=== PATIENT | male | born 1935 | race Caucasian/White ===

== ENCOUNTER 2016-11-09 02:02 | Inpatient (IN) | payer OTHER ==
[2016-11-09] MEDS ORDERED: IPRATROPIUM/ALBUTEROL 3 ML DEYVIAL IH ONE (02:09)
--- NOTE | 2016-11-09 02:14 | EDPHY ---
H & P HPI/ROS: HPI CHIEF COMPLAINT: Shortness of breath HISTORY OF PRESENT ILLNESS: this patient very pleasant 81-year-old male, significant past medical history for heart failure, COPD, on 3 L nasal cannula of oxygen at night and wears CPAP at night, he presents emergency room at 2 o' clock in the morning by EMS after the make contact with him after he called 911 for tremors and shortness of breath. Upon arrival he was on his CPAP and noted to be having an oxygen saturation 90%. He was taken off CPAP and had audible respiratory noises sounding like wet secretions and appear to be in respiratory distress with tachypnea. He is brought to the emergency room by EMS he was placed on nasal cannula 3 L 90% oxygen saturation however tachypneic in the 30s , and tremulous. He denies chest pain. Denies fever. Denies productive cough. States that his shortness of breath started around 630 this evening progressed throughout the evening. Denies recent illness. Was given a DuoNeb breathing treatment EN route by EMS this did not improve his symptoms. Upon arrival here to the emergency room he appears to be in mild distress he is tachypneic in the 30s has audible wet secretions throughout lung campos and upper airway. His room air saturation was 88% his oxygen saturation on 3 L currently is 94%. It is noted that his who is at bedside has had an upper respiratory tract infection this week. Past Medical History: Chronic cholecystitis, AFib on Coumadin, hypertension, COPD 3 L nasal cannula, CHF Past Surgical History: Left chest pacemaker Social History: Denies daily use of drugs alcohol tobacco products Family History: noncontributory ROS REVIEW OF SYSTEMS: A comprehensive 10 point review of systems is otherwise negative aside from elements mentioned in the history of present illness. Exam Constitutional triage nursing summary reviewed, vital signs reviewed, awake/ alert. Eyes normal conjunctivae and sclera, EOMI, PERRLA. HENT normal inspection, atraumatic, moist mucus membranes, no epistaxis, neck supple/ no meningismus, no raccoon eyes. Respiratory mild respiratory distress, tachypnea, diffuse crackles throughout lung campos, upper airway crackles Cardiovascular rate normal, regular rhythm, no murmur, no edema, distal pulses normal. Gastrointestinal soft, non-tender, no rebound, no guarding, normal bowel sounds, no distension, no pulsatile mass. Genitourinary no CVA tenderness. Musculoskeletal no midline vertebral tenderness, full range of motion, no calf swelling, no tenderness of extremities, no meningismus, good pulses, neurovascularly intact. Skin pink, warm, & dry, no rash, skin atraumatic. Neurologic awake, alert and oriented x 3, AAOx3, moves all 4 extremities equally, motor intact, sensory intact, CN II-XII intact, normal cerebellar, normal vision, normal speech. Psychiatric normal mood/affect. Heme/Lymph/Immune no lymphadenopathy. Differential Diagnosis:Includes but is not limited to in a particular order COPD exacerbation, heart failure, pneumonia, pulmonary embolism, respiratory distress, electrolyte disturbance, ACS, bronchitis, acute hypoxic respiratory failure, hypercarbic respiratory failure Medical Decision Making: plan for this patient patient be placed on full gravity prospecting observer he placed on supplemental oxygen he will be placed on full face BiPAP to help with his respiratory distress, patient will have an IV established be placed on full gravity prospecting observer, DuoNeb breathing treatment, blood cultures, lactic acid, chest x-ray and re-evaluation close monitoring. Re-evaluation: EKG interpretation by me on record in [employer] system. Impression time of EKG 2:36 a.m., this is a paced rhythm underlying AFib, paced at 70, unremarkable otherwise EKG. Critical Care: Total Critical Care Time Spent Managing this Patient: 65 Minutes. This time was spent Exclusively with this patient. This Care was exclusive of procedures. The Organ System/life at risk was respiratory distress severe hypoxia This Patient was in Critical Condition because hypoxia, respiratory distress CT scan of the angiogram chest The results of the study are pulmonary edema versus infiltration The study was read by Dr. Helms I viewed the images myself on the PACS system. [id number]: At this time I spoke with Dr. Ma of agrees to admit this patient. CT scan has been reviewed shows no pulmonary embolism however does show pulmonary edema versus pneumonia. Patient has had blood cultures, IV Rocephin, IV azithromycin, 40 mg IV Lasix. Patient is on full face BiPAP with hypoxia but doing well. Patient be admitted to the hospitalist service PCU. Source: Patient, EMS - Personal History Tetanus Vaccine Date: 2010 Constitutional: Initial Vital Signs Temperature (C) 37.9 C 11/09/16 02:13 Heart Rate 72 11/09/16 02:13 Respiratory Rate 19 11/09/16 02:13 Blood Pressure 189/86 H 11/09/16 02:13 O2 Sat (%) 90 L 11/09/16 02:13 O2 Delivery Mode Room Air O2 (L/minute) 2 Allergies/Adverse Reactions: codeine [Codeine] Allergy (Verified 06/04/12 17:19) Home Medications: Medication Instructions Recorded Ascorbic Acid [Vitamin C 500 mg 500 mg PO BID 07/07/12 (OTC)] Doxazosin Mesylate [Cardura 4 MG 4 mg PO HS 07/07/12 (RX)] Glucosam/Chondr/Collagn/Hyalur 1 each PO DAILY 07/07/12 [Glucosamine & Chondroitin Cap] Hydrochlorothiazide 25 mg PO DAILY 07/07/12 [Hydrochlorothiazide 25 MG (RX)] Loratadine [Claritin 10 mg] 10 mg PO HS 07/07/12 Metoprolol Tartrate [Lopressor 50 50 mg PO DAILY 07/07/12 mg (RX)] Primidone [Mysoline 50mg (RX)] 125 mg PO HS 07/07/12 Tiotropium Inhaler [Spiriva 1 inh IH DAILY 07/07/12 Inhaler (RX)] Valsartan [Diovan 80MG (RX)] 80 mg PO DAILY 07/07/12 Aspirin [Aspirin 81mg (*)] 81 mg PO DAILY 11/09/16 Fluticasone/Salmeterol [Advair Hfa 2 puffs IH DAILY 11/09/16 115-21 Mcg Inhaler] Furosemide [Lasix 20 MG (*)] 20 mg PO DAILY 11/09/16 Herbals/Supplements -Info Only 1 ea PO DAILY 11/09/16 SIMVASTATIN 10 mg PO HS 11/09/16 Warfarin Sodium [Coumadin 2.5MG 3.75 mg PO HS 11/09/16 (*)] Medical Decision Making - Data Points Laboratory Results: Laboratory Results 11/09/16 02:00 11/09/16 02:00 Medications Given: Discontinued Medications Albuterol/Ipratropium (Duoneb) 3 ml IH EDNOW ONE Stop: 11/09/16 02:10 Last Admin: 11/09/16 03:07 Dose: 3 ml Furosemide (Lasix Injection) 40 mg IVP EDNOW ONE Stop: 11/09/16 02:24 Last Admin: 11/09/16 02:54 Dose: 40 mg Azithromycin 500 mg/ Dextrose 255 mls @ 255 mls/hr IV EDNOW ONE PRN Reason: Protocol Stop: 11/09/16 03:22 Last Admin: 11/09/16 03:55 Dose: 255 mls Ceftriaxone Sodium/Dextrose (Rocephin 1 Gm (Premix)) 50 mls @ 100 mls/hr IV EDNOW ONE PRN Reason: Protocol Stop: 11/09/16 02:52 Last Admin: 11/09/16 03:06 Dose: 50 mls Sodium Chloride (Ns) 500 mls @ 0 mls/hr IV ONCE ONE PRN Reason: Wide Open Stop: 11/09/16 04:20 Last Admin: 11/09/16 04:24 Dose: 500 mls Departure - Departure Disposition: [facility] Inpatient Acute Clinical Impression: Hypoxia CHF (congestive heart failure) Qualifiers: Congestive heart failure type: systolic Congestive heart failure chronicity: acute Qualified Code(s): I50.21 - Acute systolic (congestive) heart failure Pneumonia Qualifiers: Pneumonia type: due to unspecified organism Laterality: right Lung location: lower lobe of lung Qualified Code(s): J18.1 - Lobar pneumonia, unspecified organism Condition: Fair
[2016-11-09 02:18] LABS: % IMMATURE GRANULYOCYTES 0.2 % (0.0-1.1); ABSOLUTE IMMATURE GRANULOCYTES 0.02 10^3/uL (0.00-0.10); ADD DIFF? NO; ADD MORPH? NO; ADD SCAN? NO; ATYPICAL LYMPHOCYTE FLAG 10 (0-99); FRAGMENT RBC FLAG 0 (0-99); HEMATOCRIT 43.5 % (40.0-51.0); HEMOGLOBIN 14.6 g/dL (13.7-17.5); LEFT SHIFT FLG 0 (0-99); LIPEMIA HEMOLYSIS FLAG 80 (0-99); MEAN CELL HEMOGLOBIN 32.4 pg (27.9-34.1); MEAN CELL HEMOGLOBIN CONCENTR. 33.6 g/dL (32.4-36.7); MEAN CELL VOLUME 96.5 fL (81.5-99.8); MEAN PLATELET VOLUME 11.6 fL (8.7-11.7); PLATELET CLUMPS FLAG 0 (0-99); PLATELET COUNT 123 10^3/uL (150-400); RED BLOOD CELL COUNT 4.51 10^6/uL (4.40-6.38); RED CELL DISTRIBUTION WIDTH 14.5 % (11.5-15.2)
[2016-11-09] MEDS ORDERED: AZITHROMYCIN IV 500 MG in D5W 250 ML IV ONE (02:23)
[2016-11-09] MEDS ORDERED: FUROSEMIDE 40 MG/4 ML VIAL IVP ONE (02:23)
[2016-11-09 02:28] LABS: APTT 31.4 SEC (23.0-38.0); INR 3.28 (0.83-1.16); PROTIME(PATIENT) 33.9 SEC (12.0-15.0)
[2016-11-09 02:30] LABS: ALANINE AMINOTRANSFERASE 40 IU/L (21-72); ALBUMIN 4.4 g/dL (3.5-5.0); ALKALINE PHOSPHATASE 142 IU/L (38-126); ANION GAP 13 mEq/L (8-16); ASPARTATE AMINOTRANSFERASE 38 IU/L (17-59); BILIRUBIN-CONJUGATED 0.5 mg/dL (0.0-0.5); BILIRUBIN-UNCONJUGATED 0.5 mg/dL (0.0-1.1); CALCIUM 9.1 mg/dL (8.5-10.4); CARBON DIOXIDE 27 mEq/l (22-31); CHLORIDE 96 mEq/L (97-110); CREATININE 0.9 mg/dL (0.7-1.3); GLOMERULAR FILTRATION RATE > 60; GLUCOSE 145 mg/dL (70-100); MAGNESIUM 1.9 mg/dL (1.6-2.3); SODIUM 136 mEq/L (134-144); TOTAL PROTEIN 7.8 g/dL (6.3-8.2)
[2016-11-09] MEDS ORDERED: IOPAMIDOL (ISOVUE 370) 100 ML BTL IV ONE (02:36)
--- NOTE | 2016-11-09 02:38 | CPEKG ---
Heart Rate: 70 RR Interval: 857 QRSD Interval: 166 QT Interval: 468 QTC Interval: 506 QRS [place]: -80 T Wave [place]: 75 EKG Severity - ABNORMAL ECG - EKG Impression: VENTRICULAR-PACED RHYTHM EKG Impression: Ventricular pacing is new since July 09, 2012 Electronically Signed By: Jose Ramon Anna 12-Nov-2016 12:21:12
[2016-11-09 02:42] LABS: CREATINE KINASE-MB FRACTION 2.44 ng/mL (0-3.19); TROPONIN I < 0.012 ng/mL (0-0.034)
[2016-11-09 02:53] LABS: BASE EXCESS 2.5 mEq/L (-2.5-2.5); BICARBONATE 28 mEq/L (22-26); MEASURED OXYGEN SATURATION 51 % (92-95); PCO2 46 mmHg (34-38); TCO2 29 mEq/L (23-27)
[2016-11-09 02:54] LABS: BIPAP YES; EXP PRESSURE 6; INSP PRESSURE 12; O2 CONCENTRATIION 40 % (0-100); P/F RATIO 75 RATIO
[2016-11-09 02:55] LABS: PO2 30 mmHg (65-75)
[2016-11-09] MEDS ORDERED: NS 500 ML IV ONE (04:19)
[2016-11-09] MEDS ORDERED: ACETAMINOPHEN 325 MG TAB PO PRN (04:59)
[2016-11-09] MEDS ORDERED: ONDANSETRON 4 MG/2 ML VIAL IVP PRN (04:59)
[2016-11-09] MEDS ORDERED: oxyCODONE IR 5 MG TAB PO PRN (04:59)
[2016-11-09] MEDS ORDERED: ALBUTEROL 3 ML DEYVIAL IH PRN (04:59)
[2016-11-09] MEDS ORDERED: ONDANSETRON DISINTEGRATING 4 MG TAB PO PRN (04:59)
[2016-11-09 06:29] LABS: BASE EXCESS 1.8 mEq/L (-2.5-2.5); BICARBONATE 25 mEq/L (22-26); MEASURED OXYGEN SATURATION 98 % (92-95); PCO2 34 mmHg (34-38); PO2 103 mmHg (65-75); TCO2 26 mEq/L (23-27)
[2016-11-09] MEDS: IPRATROPIUM/ALBUTEROL 3 ML DEYVIAL IH SCH ×4 (06:40→20:26)
--- NOTE | 2016-11-09 07:00 | PDGENHP ---
History and Physical - Chief Complaint Shortness of breath - History of Present Illness Patient is an 81-year-old male with a history of valvular heart disease, AFib S/ P ppm, chronic respiratory failure on 3 L NC vs CPAP at night who presents to the ED with acute respiratory distress. Patient states his symptoms started at around 7:00 p.m., prior to this he was in his usual state of health, completed his usually daily tasks without event. Initially symptoms started with a mild dry cough that became productive of sputum. His symptoms progressed throughout the evening and he was awoken at around 2 am with shaking chills and moderate respiratory distress, for which EMS was called. On EMS' arrival, patient was wearing his home CPAP and had wet sounding cough. Respiratory distress was not improved with nebs and he was transported to the ED for further management. On arrival to the ED, patient was afebrile, and hemodynamically stable, but tachypneic and hypoxic to mid-80s. He was placed on BIPAP with moderate improvement in symptoms. Labs revealed mild leukocytosis, elevated BUN and presenting ABG showed hypoxemia. CXR revealed bilateral lower patchy infiltrates. EKG showed V-paced rhythm with underlying Afib, rate controlled. CT chest was then obtained, was negative for pulmonary embolism, but did show evidence of pneumonia. He was cultured and initiated on antibiotics and admitted to the hospitalist service for further management. History Information - Allergies/Home Medication List Allergies/Adverse Reactions: codeine [Codeine] Allergy (Verified 06/04/12 17:19) Home Medications: Ascorbic Acid [Vitamin C 500 mg (OTC)] 500 mg PO DAILY 07/07/12 [Last Taken 06/08] Aspirin [Aspirin 325 mg (OTC)] 162.5 mg PO DAILY 07/07/12 [Last Taken 07/07/12] Doxazosin Mesylate [Cardura 4 MG (RX)] 4 mg PO DAILY 07/07/12 [Last Taken ] Glucosam/Chondr/Collagn/Hyalur [Glucosamine & Chondroitin Cap] 2 each PO DAILY 07/07/12 [Last Taken 07/07/12] Hydrochlorothiazide [Hydrochlorothiazide 25 MG (RX)] 25 mg PO DAILY 07/07/12 [ Last Taken 07/07/12] Loratadine [Claritin 10 mg] 10 mg PO HS 07/07/12 [Last Taken 07/06/12] Metoprolol Tartrate [Lopressor 50 mg (RX)] 75 mg PO BID 07/07/12 [Last Taken 06/08 08:00] Primidone [Mysoline 50mg (RX)] 100 mg PO HS 07/07/12 [Last Taken 07/06/12] Tiotropium Inhaler [Spiriva Inhaler (RX)] 1 inh IH DAILY 07/07/12 [Last Taken ] Valsartan [Diovan 80MG (RX)] 80 mg PO DAILY 07/07/12 [Last Taken 07/07/12] Advair Hfa 115-21 Mcg Inhaler 11/09/16 [Last Taken Unknown] Coumadin 11/09/16 [Last Taken Unknown] Flaxseed Oil 11/09/16 [Last Taken Unknown] Furosemide 11/09/16 [Last Taken Unknown] Jantoven 11/09/16 [Last Taken Unknown] I have personally reviewed and updated: family history, medical history, social history, surgical history - Past Medical History Additional medical history: h/o rheumatic mitral valve disease, s/p repair. afib s/p ablation and PPM. chronic respiratory failure, on night O2. Essential tremor of L hand. Hypertension - Surgical History Additional surgical history: mitral valve repair. cholecystectomy. 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 Lives with , is independent in ADLs. Review of Systems ROS: 10pt was reviewed & negative except for what was stated in HPI & below Physical Exam Temp Pulse Resp BP Pulse Ox 36.9 C 72 22 H 115/75 96 11/09/16 06:10 11/09/16 06:10 11/09/16 06:10 11/09/16 06:10 11/09/16 06:10 O2 (L/minute) 2 Constitutional: no apparent distress, appears nourished, not in pain Eyes: PERRL, anicteric sclera, EOMI Ears, Nose, Mouth, Throat: hearing normal, ears appear normal, no oral mucosal ulcers, dry mucous membranes Cardiovascular: systolic murmur, irregularly irregular, pulses symmetric bilaterally, edema (trace pedal edema b/l), No JVD Peripheral Pulses: 2+: dorsalis-pedis (R), dorsalis-pedis (L) Respiratory: no respiratory distress, inspiratory crackles Gastrointestinal: normoactive bowel sounds, soft, non-tender abdomen, no palpable masses, No tenderness, No guarding, No rebound Genitourinary: no bladder fullness, no bladder tenderness Skin: warm, normal color, no rashes or abrasions, no fluctuance, other (chronic stasis changes in lower extremities), No mottled Musculoskeletal: full muscle strength, no muscle tenderness, normal joint ROM, no joint effusions Neurologic: AAOx3, sensation intact bilaterally, CN II-XII Intact, No weakness, No numbness, No facial droop Psychiatric: interacting appropriately, not anxious, not encephalopathic, thought process linear, other (but lethargic) Lab Data & Imaging Review 11/09/16 02:00 11/09/16 02:00 WBC 10.77 10^3/uL (3.80-9.50) H 11/09/16 02:00 RBC 4.51 10^6/uL (4.40-6.38) 11/09/16 02:00 Hgb 14.6 g/dL (13.7-17.5) 11/09/16 02:00 Hct 43.5 % (40.0-51.0) 11/09/16 02:00 MCV 96.5 fL (81.5-99.8) 11/09/16 02:00 MCH 32.4 pg (27.9-34.1) 11/09/16 02:00 MCHC 33.6 g/dL (32.4-36.7) 11/09/16 02:00 RDW 14.5 % (11.5-15.2) 11/09/16 02:00 Plt Count 123 10^3/uL (150-400) L 11/09/16 02:00 MPV 11.6 fL (8.7-11.7) 11/09/16 02:00 Neut % (Auto) 81.8 % (39.3-74.2) H 11/09/16 02:00 Lymph % (Auto) 10.8 % (15.0-45.0) L 11/09/16 02:00 [place] % (Auto) 5.6 % (4.5-13.0) 11/09/16 02:00 Eos % (Auto) 1.0 % (0.6-7.6) 11/09/16 02:00 Baso % (Auto) 0.6 % (0.3-1.7) 11/09/16 02:00 Nucleat RBC Rel Count 0.0 % (0.0-0.2) 11/09/16 02:00 Absolute Neuts (auto) 8.82 10^3/uL (1.70-6.50) H 11/09/16 02:00 Absolute Lymphs (auto) 1.16 10^3/uL (1.00-3.00) 11/09/16 02:00 Absolute Monos (auto) 0.60 10^3/uL (0.30-0.80) 11/09/16 02:00 Absolute Eos (auto) 0.11 10^3/uL (0.03-0.40) 11/09/16 02:00 Absolute Basos (auto) 0.06 10^3/uL (0.02-0.10) 11/09/16 02:00 Absolute Nucleated RBC 0.00 10^3/uL (0-0.01) 11/09/16 02:00 Immature Gran % 0.2 % (0.0-1.1) 11/09/16 02:00 Immature Gran # 0.02 10^3/uL (0.00-0.10) 11/09/16 02:00 PT 33.9 SEC (12.0-15.0) H 11/09/16 02:00 INR 3.28 (0.83-1.16) H 11/09/16 02:00 APTT 31.4 SEC (23.0-38.0) 11/09/16 02:00 Puncture Site LEFT RADIAL 11/09/16 06:20 Patient Temperature 37.0 DEGREES 11/09/16 06:20 pCO2 34 mmHg (34-38) 11/09/16 06:20 pO2 103 mmHg (65-75) H 11/09/16 06:20 Total CO2 26 mEq/L (23-27) 11/09/16 06:20 ABG pH 7.47 (7.35-7.45) H 11/09/16 06:20 ABG PO2/FiO2 Ratio 75 RATIO 11/09/16 02:40 ABG O2 Saturation 98 % (92-95) H D 11/09/16 06:20 ABG Base Excess 1.8 mEq/L (-2.5-2.5) 11/09/16 06:20 VBG Lactic Acid 1.8 mmol/L (0.7-2.1) 11/09/16 02:51 Total O2 Concentration 3.0 LITERS 11/09/16 06:20 O2 Concentration % 40 % (0-100) 11/09/16 02:40 Expiratory Pressure 6 11/09/16 02:40 Inspiratory Pressure 12 11/09/16 02:40 Mode BiPAP YES 11/09/16 02:40 Sodium 136 mEq/L (134-144) 11/09/16 02:00 Potassium 5.0 mEq/L (3.5-5.2) 11/09/16 02:00 Chloride 96 mEq/L (97-110) L 11/09/16 02:00 Carbon Dioxide 27 mEq/l (22-31) 11/09/16 02:00 Bicarbonate 25 mEq/L (22-26) 11/09/16 06:20 Anion Gap 13 mEq/L (8-16) 11/09/16 02:00 BUN 27 mg/dL (7-23) H 11/09/16 02:00 Creatinine 0.9 mg/dL (0.7-1.3) 11/09/16 02:00 Estimated GFR > 60 11/09/16 02:00 Glucose 145 mg/dL (70-100) H 11/09/16 02:00 Calcium 9.1 mg/dL (8.5-10.4) 11/09/16 02:00 Magnesium 1.9 mg/dL (1.6-2.3) 11/09/16 02:00 Total Bilirubin 1.0 mg/dL (0.1-1.4) 11/09/16 02:00 Conjugated Bilirubin 0.5 mg/dL (0.0-0.5) 11/09/16 02:00 Unconjugated Bilirubin 0.5 mg/dL (0.0-1.1) 11/09/16 02:00 AST 38 IU/L (17-59) 11/09/16 02:00 ALT 40 IU/L (21-72) 11/09/16 02:00 Alkaline Phosphatase 142 IU/L (38-126) H 11/09/16 02:00 Creatine Kinase 78 IU/L (0-224) 11/09/16 02:00 CK-MB (CK-2) Fraction 2.44 ng/mL (0-3.19) 11/09/16 02:00 Troponin I < 0.012 ng/mL (0-0.034) 11/09/16 02:00 NT-Pro-B Natriuret Pep 1210 pg/mL (0-450) H 11/09/16 02:00 Total Protein 7.8 g/dL (6.3-8.2) 11/09/16 02:00 Albumin 4.4 g/dL (3.5-5.0) 11/09/16 02:00 Lipase 40.0 IU/L (23-300) 11/09/16 02:00 Visualized and Interpreted Chest x-ray results: Yes Chest X-Ray results: infiltrate (bilaterally, R>L) Visualized and Interpreted imaging results: Yes Interpretation: CT chest: no pulm embolism; bilateral infiltrates Visualized and Interpreted EKG results: Yes EKG additional interpertation: v-paced afib Assessment & Plan Assessment: Patient is an 81/M with valvular heart disease, Afib s/p PPm, HTN, chronic resp failure who presents to ED with acute onset dyspnea, cough and chills. ED work up reveals acute respiratory failure due to community acquired pneumonia. Plan: # acute on chronic hypoxic respiratory failure Patient in moderate resp distress on arrival, stabilized with BIPAP support. Work up reveals bilateral patchy infiltrates consistent with community acquired pneumonia. CT has ruled out pulmonary embolism and significant pulmonary edema/ effusion. Repeat ABG on bipap shows significant improvement in hypoxemia. Will treat pneumonia and cont bipap/supplemental O2 as needed. # acute community acquired pneumonia Patient does meet sirs criteria with small leukocytosis and tachypnea on presentation, and sepsis criteria with pulmonary source. Lactic acid normal. He was cultured and started on IV antibiotics to cover for presumed community acquired pneumonia. Flu swab and UA are pending. Will cont ceftriaxone and azithromycin, supportive therapy with tylenol, cough suppressants prn and check sputum culture. # Afib EKG reveals paced rhythm without obvious ischemia. INR slightly supratherapeutic , will hold Coumadin and restart rest of home meds. # valvular heart disease Patient with rheumatic mitral regurgitation, s/p MV repair. On presentation today, patient with slight pedal edema and small pulmonary edema and BNP is slightly elevated. Will hold aggressive diuresis in setting of acute infection/ sepsis. Will also confirm and cont home meds. # disp: admit to inpatient service for likely > 2 mN stay # gen; Cardiac diet DVT ppx: on coumadin Full code
[2016-11-09 09:28] LABS: COLOR YELLOW; LEUKOCYTE ESTERASE,URINE NEGATIVE (NEGATIVE); NITRITE,URINE NEGATIVE (NEGATIVE)
--- NOTE | 2016-11-09 16:41 | HOSPPROG ---
Hospitalist Progress Note Assessment/Plan: DIAGNOSES: -multilobar community-acquired pneumonia -acute respiratory failure with hypoxemia -COPD chronic and mild COPD exacerbation from above -history of valvular heart disease with repair of rheumatic mitral valve, on anticoagulation in range -history of AFib status post ablation currently in sinus PLANS: -continue empiric antibiotics and follow cultures Continue bronchodilators Consider addition of steroids as necessary Continue anticoagulation and follow INR closely here and for duration of antibiotics Ambulation as able SUBJECTIVE: feels slightly better than yesterday with less shortness of breath, no chest pain or chills today OBJECTIVE Vitals reviewed: Stable without fever [employer], my review: Sinus rhythm Exam: alert oriented skin warm dry color ok resps not labored lungs diminished breath sounds overall with some right greater than left rales in the lower half side, no wheeze heart regular abd soft nondistended nontender, bowel sounds present limbs warm, no edema iv site ok Culture data: Cultures of blood are negative to date Laboratory data: No concerning changes in blood tests so far today Objective: Vital Signs Temp Pulse Resp BP Pulse Ox 36.6 C 77 18 118/63 97 11/09/16 14:45 11/09/16 14:50 11/09/16 14:50 11/09/16 14:45 11/09/16 14:50 11/08/16 11/09/16 11/10/16 06:59 06:59 06:59 Intake Total 800 Output Total 950 750 Balance -150 -750 PT 33.9 SEC (12.0-15.0) H 11/09/16 02:00 INR 3.28 (0.83-1.16) H 11/09/16 02:00 ICD10 Worksheet Patient Problems: Problems Problem Status Onset CHF (congestive heart failure) Acute Hypoxia Acute Pneumonia Acute
[2016-11-09] MEDS: FLUTICASONE/SALMETER 250/50MCG DISKUS IH SCH (20:27)
[2016-11-09] MEDS ORDERED: NON-FORMULARY NEW DRUG (Loratadine [Claritin 10 Mg] 10 MG) PO SCH (21:00)
[2016-11-09] MEDS ORDERED: NON-FORMULARY NEW DRUG (Simvastatin [Simvastatin] 10 MG) PO SCH (21:00)
[2016-11-09] MEDS: AZITHROMYCIN IV 500 MG in D5W 250 ML IV SCH (21:17)
[2016-11-09] MEDS: PRAVASTATIN SODIUM 20 MG TAB PO SCH (21:18)
[2016-11-09] MEDS: DOXAZOSIN MESYLATE 4 MG TAB PO SCH (21:18)
[2016-11-09] MEDS: ASCORBIC ACID 500 MG TAB PO SCH (21:18)
[2016-11-09] MEDS: CETIRIZINE 10 MG TAB PO SCH (21:18)
[2016-11-09] MEDS: WARFARIN SODIUM 2.5 MG TAB PO SCH (21:18)
[2016-11-09] MEDS: PRIMIDONE 50 MG TAB PO SCH (21:19)
[2016-11-10 05:03] LABS: INR 3.01 (0.83-1.16); PROTIME(PATIENT) 31.6 SEC (12.0-15.0)
[2016-11-10 05:06] LABS: CALCIUM 8.1 mg/dL (8.5-10.4); CARBON DIOXIDE 29 mEq/l (22-31); CHLORIDE 99 mEq/L (97-110); CREATININE 0.9 mg/dL (0.7-1.3); GLOMERULAR FILTRATION RATE > 60; GLUCOSE 118 mg/dL (70-100); SODIUM 135 mEq/L (134-144)
[2016-11-10 05:11] LABS: ANION GAP 7 mEq/L (8-16); POTASSIUM 3.7 mEq/L (3.5-5.2)
[2016-11-10] MEDS: IPRATROPIUM/ALBUTEROL 3 ML DEYVIAL IH SCH ×4 (05:42→21:56)
[2016-11-10] MEDS ORDERED: NON-FORMULARY NEW DRUG (Fluticasone/Salmeterol [Advair Hfa 115-21 Mcg Inhaler] 2 PUFFS) IH SCH (09:00)
[2016-11-10] MEDS ORDERED: NON-FORMULARY NEW DRUG (Glucosam/Chondr/Collagn/Hyalur [Glucosamine & Chondroitin Cap] 1 E PO SCH (09:00)
[2016-11-10] MEDS ORDERED: TIOTROPIUM INHALER 18 MCG/DOSE 5 DOSE/MDI IH SCH (09:00)
[2016-11-10] MEDS: METOPROLOL TARTRATE 50 MG TAB PO SCH (09:15)
[2016-11-10] MEDS: HYDROCHLOROTHIAZIDE 25 MG TAB PO SCH (09:15)
[2016-11-10] MEDS: ASCORBIC ACID 500 MG TAB PO SCH ×2 (09:16→21:32)
[2016-11-10] MEDS: FUROSEMIDE 20 MG TAB PO SCH (09:16)
[2016-11-10] MEDS: ASPIRIN 81 MG CHEWABLE TAB PO SCH (09:16)
[2016-11-10] MEDS: FLUTICASONE/SALMETER 250/50MCG DISKUS IH SCH ×2 (09:16→21:56)
[2016-11-10] MEDS: GLUCOSAMINE/CHONDROITIN CAP PO SCH (09:16)
[2016-11-10] MEDS: VALSARTAN 80 MG TAB PO SCH (16:26)
--- NOTE | 2016-11-10 19:16 | HOSPPROG ---
Hospitalist Progress Note Assessment/Plan: DIAGNOSES: -multilobar community-acquired pneumonia -acute respiratory failure with hypoxemia -COPD chronic and mild COPD exacerbation from above -history of valvular heart disease with repair of rheumatic mitral valve, on anticoagulation in range -history of AFib status post ablation currently in sinus PLANS: continue empiric antibiotics and follow cultures Continue bronchodilators Continue anticoagulation and follow INR closely here and for duration of antibiotics Ambulation as able SUBJECTIVE: feels slightly better than yesterday with less shortness of breath, no chest pain or chills today OBJECTIVE Vitals reviewed: Stable without fever Customizer, my review: Sinus rhythm Exam: alert oriented skin warm dry color ok resps not labored lungs diminished breath sounds overall with some right greater than left rales in the lower half side, no wheeze heart regular abd soft nondistended nontender, bowel sounds present limbs warm, no edema iv site ok Culture data: Cultures of blood are negative to date Objective: Vital Signs Temp Pulse Resp BP Pulse Ox 36.9 C 71 20 105/54 L 87 L 11/10/16 15:08 11/10/16 16:36 11/10/16 16:36 11/10/16 15:08 11/10/16 17:50 Laboratory Results 11/10/16 04:40 11/09/16 11/10/16 11/11/16 06:59 06:59 06:59 Intake Total 800 1475 940 Output Total 950 1750 400 Balance -150 -275 540 PT 31.6 SEC (12.0-15.0) H 11/10/16 04:40 INR 3.01 (0.83-1.16) H 11/10/16 04:40 ICD10 Worksheet Patient Problems: Problems Problem Status Onset CHF (congestive heart failure) Acute Chronic Disease Mgmt/TCM Acute Hypoxia Acute Pneumonia Acute Transitonal Care Acute
[2016-11-10] MEDS: DOXAZOSIN MESYLATE 4 MG TAB PO SCH (21:32)
[2016-11-10] MEDS: CETIRIZINE 10 MG TAB PO SCH (21:32)
[2016-11-10] MEDS: PRAVASTATIN SODIUM 20 MG TAB PO SCH (21:32)
[2016-11-10] MEDS: WARFARIN SODIUM 2.5 MG TAB PO SCH (21:32)
[2016-11-10] MEDS: PRIMIDONE 50 MG TAB PO SCH (21:33)
[2016-11-10] MEDS: AZITHROMYCIN IV 500 MG in D5W 250 ML IV SCH (22:31)
[2016-11-11] MEDS: IPRATROPIUM/ALBUTEROL 3 ML DEYVIAL IH SCH ×4 (05:08→21:49)
[2016-11-11 05:12] LABS: INR 2.48 (0.83-1.16); PROTIME(PATIENT) 27.1 SEC (12.0-15.0)
[2016-11-11] MEDS: HYDROCHLOROTHIAZIDE 25 MG TAB PO SCH (09:18)
[2016-11-11] MEDS: ASCORBIC ACID 500 MG TAB PO SCH ×2 (09:18→22:12)
[2016-11-11] MEDS: GLUCOSAMINE/CHONDROITIN CAP PO SCH (09:18)
[2016-11-11] MEDS: FUROSEMIDE 20 MG TAB PO SCH (09:18)
[2016-11-11] MEDS: VALSARTAN 80 MG TAB PO SCH (09:18)
[2016-11-11] MEDS: ASPIRIN 81 MG CHEWABLE TAB PO SCH (09:18)
[2016-11-11] MEDS: METOPROLOL TARTRATE 50 MG TAB PO SCH (09:18)
[2016-11-11] MEDS: FLUTICASONE/SALMETER 250/50MCG DISKUS IH SCH ×2 (11:13→21:50)
--- NOTE | 2016-11-11 14:36 | HOSPPROG ---
Hospitalist Progress Note Assessment/Plan: 81-year-old man with a history of heart disease including AFib status post pacemaker placement and TAVR presents with acute shortness of breath. The progression of his respiratory distress was quite rapid starting at 7:00 p.m. in the evening progressing to a productive cough with shakes and he was brought emergently to the ER in the middle of the night. Chest x-ray and CT scan revealed possible pulmonary edema versus multi lobar pneumonia. # acute respiratory distress unclear if this is secondary to pulmonary edema versus multi lobar pneumonia. Patient does have a new productive cough with some shakes on admission however has not had a white count or fever. * Continue current antibiotics for community-acquired pneumonia. * Further evaluation of his heart function with an echocardiogram given his significant heart disease. # severe aortic stenosis status post TAVR November 2014. Recent echocardiogram did show increase aortic valve gradient of 29 for mean and peak at 50. Follow- up UMU did show lower pressures. He has been treated medically at the [facility]. * Repeat echocardiogram given the possibility of pulmonary edema * Recheck chest XRAY and BNP * Consider diuresis if these are significantly abnormal # history of AFib status post ablation and a single lead pacemaker placement. Currently on anticoagulation with Coumadin # history of COPD # history of obstructive sleep apnea on CPAP at home moderate pulmonary hypertension on recent echo with RVSP of 48. # coronary artery disease noted on a nuclear stress test with a small amount of ischemia noted and has been treated medically # DVT prophylaxis currently anticoagulated with Coumadin Subjective: Patient new to ca chart reviewed and reviewed records from the [facility]. The patient feeling about 20% better he does admit to chronic shortness of breath and is followed at the [facility] for his cardiac disease including severe aortic stenosis status post TAVR. He has had no chest pain. He has 2 pillow orthopnea Objective: Vital Signs Temp Pulse Resp BP Pulse Ox 37.1 C 72 20 117/60 90 L 11/11/16 11:31 11/11/16 11:31 11/11/16 11:31 11/11/16 11:31 11/11/16 11:42 Laboratory Results 11/10/16 04:40 11/10/16 11/11/16 11/12/16 05:59 05:59 05:59 Intake Total 1475 1520 Output Total 1750 750 Balance -275 770 PT 27.1 SEC (12.0-15.0) H 04/01/17 04:37 INR 2.48 (0.83-1.16) H 11/11/16 04:37 - Physical Exam Constitutional: no apparent distress, not in pain Eyes: PERRL, anicteric sclera, EOMI Cardiovascular: regular rate and rhythym, systolic murmur, edema (1+) Respiratory: no respiratory distress, inspiratory crackles (Bilateral lower bases), No respiratory distress Gastrointestinal: normoactive bowel sounds, soft, non-tender abdomen, no palpable masses Genitourinary: no bladder fullness Skin: warm, normal color Neurologic: AAOx3, No facial droop Psychiatric: interacting appropriately, not anxious, not encephalopathic ICD10 Worksheet Patient Problems: Problems Problem Status Onset Chronic Disease Mgmt/TCM Acute CHF (congestive heart failure) Acute Hypoxia Acute Pneumonia Acute Transitonal Care Acute
[2016-11-11] MEDS: AZITHROMYCIN 250 MG TAB PO SCH (18:31)
[2016-11-11] MEDS: PRAVASTATIN SODIUM 20 MG TAB PO SCH (22:11)
[2016-11-11] MEDS: CETIRIZINE 10 MG TAB PO SCH (22:12)
[2016-11-11] MEDS: PRIMIDONE 50 MG TAB PO SCH (22:12)
[2016-11-11] MEDS: DOXAZOSIN MESYLATE 4 MG TAB PO SCH (22:13)
[2016-11-11] MEDS: WARFARIN SODIUM 2.5 MG TAB PO SCH (22:13)
[2016-11-12 04:08] LABS: % IMMATURE GRANULYOCYTES 0.4 % (0.0-1.1); ABSOLUTE IMMATURE GRANULOCYTES 0.02 10^3/uL (0.00-0.10); ADD DIFF? NO; ADD MORPH? NO; ADD SCAN? NO; ATYPICAL LYMPHOCYTE FLAG 0 (0-99); FRAGMENT RBC FLAG 0 (0-99); HEMATOCRIT 35.2 % (40.0-51.0); LEFT SHIFT FLG 0 (0-99); LIPEMIA HEMOLYSIS FLAG 90 (0-99); MEAN CELL HEMOGLOBIN 32.5 pg (27.9-34.1); MEAN CELL HEMOGLOBIN CONCENTR. 34.1 g/dL (32.4-36.7); MEAN CELL VOLUME 95.4 fL (81.5-99.8); MEAN PLATELET VOLUME 10.9 fL (8.7-11.7); PLATELET CLUMPS FLAG 10 (0-99); PLATELET COUNT 96 10^3/uL (150-400); RED BLOOD CELL COUNT 3.69 10^6/uL (4.40-6.38); RED CELL DISTRIBUTION WIDTH 14.8 % (11.5-15.2)
[2016-11-12 04:18] LABS: INR 2.27 (0.83-1.16); PROTIME(PATIENT) 25.2 SEC (12.0-15.0)
[2016-11-12 04:46] LABS: ANION GAP 8 mEq/L (8-16); CALCIUM 8.3 mg/dL (8.5-10.4); CARBON DIOXIDE 25 mEq/l (22-31); CHLORIDE 98 mEq/L (97-110); CREATININE 0.7 mg/dL (0.7-1.3); GLOMERULAR FILTRATION RATE > 60; GLUCOSE 100 mg/dL (70-100); POTASSIUM 4.3 mEq/L (3.5-5.2); SODIUM 131 mEq/L (134-144)
[2016-11-12] MEDS: IPRATROPIUM/ALBUTEROL 3 ML DEYVIAL IH SCH ×4 (05:39→20:16)
[2016-11-12] MEDS: ASPIRIN 81 MG CHEWABLE TAB PO SCH (07:55)
[2016-11-12] MEDS: GLUCOSAMINE/CHONDROITIN CAP PO SCH (07:55)
[2016-11-12] MEDS: VALSARTAN 80 MG TAB PO SCH (07:55)
[2016-11-12] MEDS: HYDROCHLOROTHIAZIDE 25 MG TAB PO SCH (07:55)
[2016-11-12] MEDS: ASCORBIC ACID 500 MG TAB PO SCH ×2 (07:55→20:21)
[2016-11-12] MEDS: METOPROLOL TARTRATE 50 MG TAB PO SCH (07:55)
[2016-11-12] MEDS: FUROSEMIDE 20 MG TAB PO SCH (07:55)
[2016-11-12] MEDS: FLUTICASONE/SALMETER 250/50MCG DISKUS IH SCH ×2 (07:56→20:17)
--- NOTE | 2016-11-12 09:30 | ECHO ---
[id number] + + [address] : : [place] [address] : : [phone] + + Adult Echocardiographic Report + -------+ :Name: KAVITHA MILES LStudy Date: 11/12/2016 07:31 AM : : Hospital Admission Number: [id number] Locati on: 214: :: 1935 Gender: Male Height: 70 in : :Age: 81 yrs Race: WH Weight: 179 lb : :Reason For Study: CHF/compare to recent echo AV peak 50/AV : :mean 29mmHG BSA: 2.0 meter s2 : :History: TAVR/Pacer : + -------+ MMode/2D Measurements \T\ Calculations LVIDd: 4.5 cm EDV(Teich): Ao root diam: LVLd ap4: 8.6 cm 92.9 ml 1.9 cm EDV(MOD-sp4): LA dimension: 65.0 ml 5.5 cm LVLs ap4: 7.7 cm ESV(MOD-sp4): 30.0 ml EF(MOD-sp4): 53.8 % SV(MOD-sp4): 35.0 ml Normal Measurement Values: + + :LVIDd (3.5-5.7cm) IVSd (0.6-1.1cm) LVPWd (0.6-1.1cm) Aortic Root (2.0-3.7cm)Left Atrium (1.5-4.0cm): :LV Vol(d) (76-115ml) LV Vol(s) (29-48ml) Ejec Fraction (50-65%)PV Pj (0.6- 1.2m/s) TV Pj (0.4-1.0m/s) : :MV E Pj (0.8-1.0m/s)MV A Pj (0.3-1.0m/s)LVOT Pj (0.7-1.2m/s) Asc Ao Pj ( 0.9-1.8m/s) : + + Doppler Measurements \T\ Calculations MV E max pj: MV V2 mean: MV P1/2t max pj: Ao mean P.7 cm/sec 92.4 cm/sec 181.3 cm/sec 27.7 mmHg MV A max pj: MV mean PG: MV P1/2t: 98.5 msec Ao V2 mean: 53.1 cm/sec 4.6 mmHg MVA(P1/2t): 2.2 cm2 246.2 cm/sec MV E/A: 3.5 MV V2 VTI: MV dec slope: Ao V2 VTI: 75.4 cm MV dec time: 41.0 cm 539.1 cm/sec2 0.30 sec TR max pj: 382.6 cm/sec TR max P.5 mmHg RAP systole: 10.0 mmHg RVSP(TR): 68.5 mmHg Left Ventricle The left ventricle is normal in size. There is normal left ventricular wall thickness. There is Doppler evidence for diastolic dysfunction. LVEF low normal with LVEF 54% and no focal wall motion abnormalities. Septal motion is consistent with conduction abnormality. Right Ventricle The right ventricle is normal in size and function. There is a pacemaker lead in the right ventricle. Atria Moderate to severe LAE. Moderate to severe BARRON. The interatrial septum is intact with no evidence for an atrial septal defect. Mitral Valve Calcified mitral apparatus. There is no evidence of mitral valve prolapse. There is mild mitral stenosis. There is moderate mitral regurgitation. Tricuspid Valve Normal tricuspid valve. Right ventricular systolic pressure is 69mmHg. There is Doppler evidence for moderate pulmonary hypertension. Moderate to severe TR noted. Aortic Valve The aortic valve is trileaflet. The aortic valve opens well. AV max PG is 44mmHG. AV mean PG is 27mmHG. Moderate valvular aortic stenosis. There is no aortic insufficiency. Pulmonic Valve The pulmonic valve is not well visualized. There is no pulmonic valvular regurgitation. Great Vessels The aortic root is normal size. Pericardium/Pleural There is no pericardial effusion. Conclusion A complete two-dimensional transthoracic echocardiogram was performed (2D, M-mode, Doppler and color flow Doppler). The patient has a dilated IVC. 1)Low normal LV systolic function with a LVEF of 50-55%. 2)Diastolic dysfunction. 3)Moderate to severe bi-atrial enlargement. 4)Pacer wires noted in right heart chambers. 5)TAVR with mild-moderate and no AI. 6)Moderate MR and mild MS noted. 7)Moderate to severe TR with estimated moderate to severe pulmonary HTN (PAS 73mmHg). 8)Estimated elevated CVP of 15-20mmHg. Final Reading Physician: Aiden Shah electronically signed on 11/12/2016 09:28 AM Ordering Physician: Olga Lidia Chatterjee Performed By: Benita Stout, MOISE
--- NOTE | 2016-11-12 11:27 | HOSPPROG ---
Hospitalist Progress Note Assessment/Plan: 81-year-old man with a history of heart disease including AFib status post pacemaker placement and TAVR presents with acute shortness of breath. The progression of his respiratory distress was quite rapid starting at 7:00 p.m. in the evening progressing to a productive cough with shakes and he was brought emergently to the ER in the middle of the night. Chest x-ray and CT scan revealed possible pulmonary edema versus multi lobar pneumonia. # acute respiratory distress unclear if this is secondary to pulmonary edema versus multi lobar pneumonia. Patient does have a new productive cough with some shakes on admission however has not had a white count or fever. * Continue current antibiotics for community-acquired pneumonia. * Further evaluation of his heart function with an echocardiogram given his significant heart disease. # acute congestive heart failure. Patient with history of diastolic dysfunction and echocardiogram reveals increased TR and increased RV SP from August of 2016. Patient admits to 2 months of increasing shortness of breath and dyspnea on exertion he also has a 2 pillow orthopnea and lower extremity edema. * Start IV Lasix * Follow BNP * Have pacemaker interrogated to look for tachy arrhythmias as a cause for his fluid overload * Will eventually follow up with the [facility] # severe aortic stenosis status post TAVR November 2014. Recent echocardiogram did show increase aortic valve gradient of 29 for mean and peak at 50. Follow- up UMU did show lower pressures. He has been treated medically at the [facility]. * Repeat echocardiogram shows stable TAVR * Chest x-ray personally reviewed and does show slightly decreased pulmonary edema # history of AFib status post ablation and a single lead pacemaker placement. Currently on anticoagulation with Coumadin * Interrogate pacemaker # history of COPD, continue his respiratory medications # history of obstructive sleep apnea on CPAP at home moderate pulmonary hypertension on recent echo with RVSP of 48, today RVSP is 70 # coronary artery disease noted on a nuclear stress test with a small amount of ischemia noted and has been treated medically # DVT prophylaxis currently anticoagulated with Coumadin Subjective: Patient thinks he might feel a little bit better but is still quite short of breath when he gets up to go to the bathroom Objective: Vital Signs Temp Pulse Resp BP Pulse Ox 36.8 C 73 18 161/88 H 93 11/12/16 08:00 11/12/16 08:00 11/12/16 08:00 11/12/16 08:00 11/12/16 08:00 Laboratory Results 11/12/16 03:49 11/12/16 03:49 11/11/16 11/12/16 11/13/16 05:59 05:59 05:59 Intake Total 1520 850 Output Total 750 900 325 Balance 770 -50 -325 PT 25.2 SEC (12.0-15.0) H 11/12/16 03:49 INR 2.27 (0.83-1.16) H 11/12/16 03:49 - Physical Exam Constitutional: appears nourished, not in pain Eyes: PERRL, anicteric sclera, EOMI Ears, Nose, Mouth, Throat: moist mucous membranes, ears appear normal Cardiovascular: regular rate and rhythym, systolic murmur Respiratory: expiratory wheeze, inspiratory crackles, respiratory distress (Mild ) Gastrointestinal: normoactive bowel sounds, soft, non-tender abdomen, no palpable masses Genitourinary: no bladder fullness Skin: warm, normal color Musculoskeletal: no joint effusions, generalized weakness Neurologic: AAOx3 Psychiatric: interacting appropriately, not anxious, not encephalopathic ICD10 Worksheet Patient Problems: Problems Problem Status Onset Chronic Disease Mgmt/TCM Acute CHF (congestive heart failure) Acute Hypoxia Acute Pneumonia Acute Transitonal Care Acute
[2016-11-12] MEDS: FUROSEMIDE 40 MG/4 ML VIAL IVP SCH ×2 (12:40→17:16)
[2016-11-12] MEDS: AZITHROMYCIN 250 MG TAB PO SCH (17:16)
[2016-11-12] MEDS: WARFARIN SODIUM 2.5 MG TAB PO SCH (20:21)
[2016-11-12] MEDS: CETIRIZINE 10 MG TAB PO SCH (20:22)
[2016-11-12] MEDS: PRAVASTATIN SODIUM 20 MG TAB PO SCH (20:22)
[2016-11-12] MEDS: DOXAZOSIN MESYLATE 4 MG TAB PO SCH (20:22)
[2016-11-12] MEDS: PRIMIDONE 50 MG TAB PO SCH (20:22)
[2016-11-13 04:49] LABS: ANION GAP 10 mEq/L (8-16); CALCIUM 8.3 mg/dL (8.5-10.4); CARBON DIOXIDE 27 mEq/l (22-31); CHLORIDE 94 mEq/L (97-110); CREATININE 0.9 mg/dL (0.7-1.3); GLOMERULAR FILTRATION RATE > 60; GLUCOSE 106 mg/dL (70-100); POTASSIUM 3.8 mEq/L (3.5-5.2); SODIUM 131 mEq/L (134-144)
[2016-11-13] MEDS: IPRATROPIUM/ALBUTEROL 3 ML DEYVIAL IH SCH ×4 (06:04→21:29)
[2016-11-13] MEDS: FUROSEMIDE 40 MG/4 ML VIAL IVP SCH ×2 (09:27→16:17)
[2016-11-13] MEDS: GLUCOSAMINE/CHONDROITIN CAP PO SCH (09:29)
[2016-11-13] MEDS: HYDROCHLOROTHIAZIDE 25 MG TAB PO SCH (09:29)
[2016-11-13] MEDS: VALSARTAN 80 MG TAB PO SCH (09:29)
[2016-11-13] MEDS: ASPIRIN 81 MG CHEWABLE TAB PO SCH (09:29)
[2016-11-13] MEDS: ASCORBIC ACID 500 MG TAB PO SCH ×2 (09:29→20:27)
[2016-11-13] MEDS: METOPROLOL TARTRATE 50 MG TAB PO SCH (09:29)
[2016-11-13] MEDS: FLUTICASONE/SALMETER 250/50MCG DISKUS IH SCH ×2 (09:48→21:29)
[2016-11-13] MEDS ORDERED: BISACODYL 10 MG SUPP PR PRN (10:48)
[2016-11-13] MEDS ORDERED: POLYETHYLENE GLYCOL 3350 17 GM PKT PO PRN (10:48)
[2016-11-13] MEDS ORDERED: LACTULOSE 20 GM/30 ML UDCUP PO PRN (10:48)
[2016-11-13] MEDS ORDERED: MAGNESIUM HYDROXIDE 30 ML UDCUP PO PRN (10:48)
--- NOTE | 2016-11-13 10:52 | HOSPPROG ---
Hospitalist Progress Note Assessment/Plan: 81-year-old man with a history of heart disease including AFib status post pacemaker placement and TAVR presents with acute shortness of breath. The progression of his respiratory distress was quite rapid starting at 7:00 p.m. in the evening progressing to a productive cough with shakes and he was brought emergently to the ER in the middle of the night. Chest x-ray and CT scan revealed possible pulmonary edema versus multi lobar pneumonia. # acute respiratory distress unclear if this is secondary to pulmonary edema versus multi lobar pneumonia. Patient does have a new productive cough with some shakes on admission however has not had a white count or fever. * Continue current antibiotics for community-acquired pneumonia. * Further evaluation of his heart function patient with suspected congestive heart failure * Increased dyspnea on exertion today will check chest x-ray # acute congestive heart failure. Patient with history of diastolic dysfunction and echocardiogram reveals increased TR and increased RV SP from August of 2016. Patient admits to 2 months of increasing shortness of breath and dyspnea on exertion he also has a 2 pillow orthopnea and lower extremity edema. * Start IV Lasix * Follow BNP * Have pacemaker interrogated to look for tachy arrhythmias as a cause for his fluid overload * Will eventually follow up with the [facility] * Consider Lexiscan for possible ischemia, can do as outpatient # severe aortic stenosis status post TAVR November 2014. Recent UMU, done to assess gradient which was okay * Repeat echocardiogram shows stable TAVR # history of AFib status post ablation and a single lead pacemaker placement. Currently on anticoagulation with Coumadin * Interrogate pacemaker * Recheck INR tomorrow # history of COPD, continue his respiratory medications # history of obstructive sleep apnea on CPAP at home moderate pulmonary hypertension on recent echo with RVSP of 48, today RVSP is 70 # coronary artery disease noted on a nuclear stress test with a small amount of ischemia noted and has been treated medically # DVT prophylaxis currently anticoagulated with Coumadin Subjective: Patient feels more short of breath this morning. Especially when he got up to go to the bathroom. Has minimal cough. No fevers chills. He denies any chest pain Objective: Vital Signs Temp Pulse Resp BP Pulse Ox 37.7 C 84 14 104/52 L 95 11/13/16 08:00 11/13/16 10:21 11/13/16 10:21 11/13/16 08:00 11/13/16 10:21 Laboratory Results 11/12/16 03:49 11/13/16 03:50 11/12/16 11/13/16 11/14/16 05:59 05:59 05:59 Intake Total 850 450 Output Total 900 3555 250 Balance -50 -3105 -250 PT 25.2 SEC (12.0-15.0) H 11/12/16 03:49 INR 2.27 (0.83-1.16) H 11/12/16 03:49 - Physical Exam Constitutional: chronically ill appearing, uncomfortable Eyes: PERRL, EOMI Ears, Nose, Mouth, Throat: ears appear normal, no oral mucosal ulcers Cardiovascular: regular rate and rhythym, systolic murmur, edema, other ( Telemetry shows paced rhythm) Respiratory: reduced air movement, inspiratory crackles (Basis), respiratory distress, No expiratory wheeze Genitourinary: no bladder fullness, No macias in urethra Skin: warm Musculoskeletal: no joint effusions, generalized weakness Neurologic: AAOx3 Psychiatric: interacting appropriately, not anxious, not encephalopathic ICD10 Worksheet Patient Problems: Problems Problem Status Onset Chronic Disease Mgmt/TCM Acute CHF (congestive heart failure) Acute Hypoxia Acute Pneumonia Acute Transitonal Care Acute
--- NOTE | 2016-11-13 12:01 | GCON ---
[f rep st] CONSULTATION CARDIOLOGY CONSULTATION DATE OF CONSULTATION: 11/13/2016 CHIEF COMPLAINT: Heart failure and valvular heart disease. HISTORY OF PRESENT ILLNESS: We were asked by Dr. Chatterjee to visit with Mr. Solares. The patient is a very pleasant 81-year-old male with a history of transaortic valve replacement in 2014, heart failure with preserved ejection fraction, atrial fibrillation, status post ablation. I am not sure if this is atrial fibrillation ablation or AV node ablation. He has a permanent pacemaker and pulmonary hypertension. He also has coronary artery calcifications and COPD. His cardiac care is at [facility] He was in his usual state of reasonable health up until November 09 around 7:00 p.m. He had acute onset of tremors and generalized malaise. He did feel short of breath. He had a little bit of a productive cough. His thought he looked unwell, and therefore he was brought to the Emergency Department. In the department, it was felt that he had a combination of heart failure and pneumonia. He has been treated with IV antibiotics. On November 12, IV Lasix was started. Upon my evaluation this morning, he reports that he still feels overall malaise , but in general is feeling better. His dyspnea is improved. He has no chest pain. He had not had problems with presyncope, syncope, or palpitations. He denied paroxysmal nocturnal dyspnea or orthopnea. He does have chronic and mild bilateral lower extremity edema, which was not a new finding. REVIEW OF SYSTEMS: CARDIOVASCULAR: As per HPI. Otherwise, a full 10-point review of systems is performed, and is negative except that which is outlined above. GI: He has constipation. ALLERGIES: Codeine. PAST MEDICAL HISTORY: 1. Valvular heart disease with TAVR in 2014 at [facility]. He also has residual moderate mitral regurgitation and moderate to severe tricuspid regurgitation. 2. Atrial fibrillation, status post either atrial fibrillation ablation or AV node ablation. 3. Permanent pacemaker. 4. Heart failure with preserved ejection fraction. 5. Pulmonary hypertension. 6. COPD, not on home oxygen. 7. Sleep apnea, treated at night with CPAP. 8. Coronary artery calcifications, but apparently did not get any intervention at the time of his TAVR. 9. BPH. MEDICATIONS: Aspirin 81 mg daily, Advair, Lasix 20 mg daily, glucosamine, hydrochlorothiazide 25 mg daily, loratadine, metoprolol 50 mg daily, simvastatin 10 mg daily, valsartan 80 mg daily, Spiriva inhaler, and warfarin directed per INR. SOCIAL HISTORY: The patient is . 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 He quit smoking in 1984. He does not drink alcohol. FAMILY HISTORY: Not applicable to the current case. PHYSICAL EXAM: VITAL SIGNS: Blood pressure is 104/52, heart rate is 71, oxygen saturation 92% on room air. He has a low-grade fever of 37.7. GENERAL: Well-appearing older male, in no acute distress. He is mildly dyspneic. HEENT: Sclerae are clear and free of jaundice. Mucous members are moist. Normocephalic, atraumatic. CARDIOVASCULAR: JVP is approximately 10 cm of water. Carotids equal and 2+ without bruit. Regular rate and rhythm with a 2/ 6 mid-peaking systolic ejection murmur at the base. A 2/6 holosystolic murmur at the left lower sternal border and at the apex. No S3. LUNGS: Decreased breath sounds throughout. No wheezes, rhonchi, or rales. ABDOMEN: Soft, nontender, nondistended without bruits, masses, splenomegaly. EXTREMITIES: Warm, well perfused with trace bilateral ankle edema. Stigmata of chronic venous insufficiency. NEURO: Alert and oriented x3 without gross focal neurologic deficits. Appropriate mood and affect. LABORATORY DATA: Initial white count 7.77, currently 4.96, hematocrit 35.2, platelets 96. INR 2.27, sodium 131, potassium 3.8, chloride 94, carbon dioxide 27, BUN 24, creatinine 0.9, glucose 106. His peak BNP has been 1650. Troponin negative x1. Urinalysis is normal. Flu swab negative. Blood cultures negative to date. Chest x-ray reviewed by me x2. Upon admission: Pulmonary edema and COPD. Possible pneumonia. Follow up chest x-ray on November [address]: Likely heart failure. Possible pneumonia. No pulmonary embolism. Coronary artery calcifications. Aortic valve replacement. EKG reviewed by me: Underlying atrial fibrillation with ventricular pacing. Echocardiogram reviewed by me: Normal LV ejection fraction at 55%. No ischemic wall motion abnormalities. Moderate to severe biatrial enlargement. Moderate mitral regurgitation. Moderate to severe tricuspid regurgitation with estimated pulmonary pressure of 69. TAVR in place. Mean transvalvular gradient is 27 mmHg. No aortic insufficiency. ASSESSMENT: An 81-year-old male with cardiac history of transcatheter aortic valve replacement, atrial fibrillation, pacemaker, moderate mitral and moderate to severe tricuspid regurgitations with pulmonary hypertension. He is admitted with what appears to be a combination of pneumonia and heart failure. Clinically, he has improved somewhat. It is reassuring that his troponin was negative upon admission. He has not had chest pain. His BNP was only slightly elevated. 1. Heart failure with preserved ejection fraction. Agree with IV Lasix, likely for 1 more day. Follow renal function. This does not appear to be triggered by ischemia. I do not think he needs a nuclear stress test here, but can follow up with the [facility] with his usual manager of enterprise. It is likely that his pulmonary process possible combination of COPD and pneumonia has worsened his pulmonary hypertension, which has in turn worsened his tricuspid regurgitation. 2. Possible pneumonia: He is on antibiotics. He is clinically improving. Check ESR and CRP. I doubt that he has endocarditis, but he does have ongoing low-grade fever. Blood cultures have been negative. 3. Atrial fibrillation: This is permanent. He has a permanent pacemaker. As above, I am not sure whether he has had an AV node ablation or an atrial fibrillation ablation. Continue warfarin. Pacemaker interrogation has been ordered to rule out any tachy arrhythmias. 4. Valvular heart disease: He has moderately elevated transaortic valve gradients across his TAVR. This is not in the critical range. 5. Pulmonary hypertension: This is worse than a [facility] echo. I think it is related to his acute pulmonary process. Diuresis should help with this somewhat. 6. Chronic obstructive pulmonary disease: He is not wheezing on exam. He may ultimately require oxygen at home. 7. Coronary artery calcifications: No chest pain. EKG un-interpretable for ischemia. Negative troponin. Apparently, he had a nuclear stress test before his TAVR that was only mildly abnormal. I do not see the need to repeat this now, as he does not appear actively ischemic. Thank you for allowing us to participate in the patient's care. We will follow with you. Copy requested to: [facility] /[id number]/MODL MTDD
[2016-11-13 12:21] LABS: HEMATOCRIT 37.7 % (40.0-51.0)
[2016-11-13] MEDS: SENNOSIDES/DOCUSATE SODIUM TAB PO SCH ×2 (17:58→20:27)
[2016-11-13] MEDS: AZITHROMYCIN 250 MG TAB PO SCH (17:58)
[2016-11-13] MEDS: PRAVASTATIN SODIUM 20 MG TAB PO SCH (20:27)
[2016-11-13] MEDS: CETIRIZINE 10 MG TAB PO SCH (20:27)
[2016-11-13] MEDS: DOXAZOSIN MESYLATE 4 MG TAB PO SCH (20:27)
[2016-11-13] MEDS: PRIMIDONE 50 MG TAB PO SCH (20:27)
[2016-11-13] MEDS: WARFARIN SODIUM 2.5 MG TAB PO SCH (20:27)
[2016-11-14 04:31] LABS: HEMATOCRIT 36.8 % (40.0-51.0); HEMOGLOBIN 12.7 g/dL (13.7-17.5); MEAN CELL HEMOGLOBIN 32.6 pg (27.9-34.1); MEAN CELL HEMOGLOBIN CONCENTR. 34.5 g/dL (32.4-36.7); MEAN CELL VOLUME 94.4 fL (81.5-99.8); RED BLOOD CELL COUNT 3.9 10^6/uL (4.40-6.38); RED CELL DISTRIBUTION WIDTH 14.6 % (11.5-15.2)
[2016-11-14 04:45] LABS: INR 2.31 (0.83-1.16); PROTIME(PATIENT) 25.6 SEC (12.0-15.0)
[2016-11-14 04:57] LABS: POTASSIUM 4.2 mEq/L (3.5-5.2)
[2016-11-14 04:59] LABS: ANION GAP 14 mEq/L (8-16); CALCIUM 8.4 mg/dL (8.5-10.4); CARBON DIOXIDE 27 mEq/l (22-31); CHLORIDE 90 mEq/L (97-110); CREATININE 0.9 mg/dL (0.7-1.3); GLOMERULAR FILTRATION RATE > 60; GLUCOSE 115 mg/dL (70-100); SODIUM 131 mEq/L (134-144)
[2016-11-14] MEDS: IPRATROPIUM/ALBUTEROL 3 ML DEYVIAL IH SCH ×4 (05:13→21:06)
[2016-11-14] MEDS: GLUCOSAMINE/CHONDROITIN CAP PO SCH (08:33)
[2016-11-14] MEDS: HYDROCHLOROTHIAZIDE 25 MG TAB PO SCH (08:34)
[2016-11-14] MEDS: VALSARTAN 80 MG TAB PO SCH (08:34)
[2016-11-14] MEDS: METOPROLOL TARTRATE 50 MG TAB PO SCH (08:34)
[2016-11-14] MEDS: ASPIRIN 81 MG CHEWABLE TAB PO SCH (08:34)
[2016-11-14] MEDS: ASCORBIC ACID 500 MG TAB PO SCH ×2 (08:35→20:24)
[2016-11-14] MEDS: SENNOSIDES/DOCUSATE SODIUM TAB PO SCH ×2 (08:35→20:24)
[2016-11-14] MEDS: FUROSEMIDE 40 MG/4 ML VIAL IVP SCH ×2 (08:36→14:05)
[2016-11-14] MEDS: FLUTICASONE/SALMETER 250/50MCG DISKUS IH SCH ×2 (10:05→21:06)
--- NOTE | 2016-11-14 12:44 | PDCARPN ---
Cardiology Progress Note Assessment/Plan: Assessment/plan: 81 yo M with COPD, VHD (s/p TAVR in 2015; mod MR; mod-severe TR); HFpEF; AF with PPM. Also has PHTN and CAD based on coronary calcifications. Admitted 11/09 with cough, SOB, malaise, initally treated for pna. On 11/12 started IV diuretics. Appears clinically euvolemic. Does not appear ischemic. Still with O2 requirement 1. HFpEF; cont IV lasix today, likely oral tomorrow. May be, in part, related to elevated transaortic gradients and residual MR. On appropriate BP management 2. Hypoxia: combination pna (on abx, question viral component) and CHF. Likely his baseline O2 sat is low 90s given his COPD 3. VHD: moderately elevated TAVR gradients. PHTn worse on echo here compared with [facility]. Diuresis, BP control 4. AF with PPM: on chronic warfarin 11/14/16 12:45 Subjective: Mr. Solares reports baseline SOB with ADLs. No CP. Denies presyncope. Had normal BM Reviewed/Discussed With: other (Dr. Chatterjee) Objective: Vital Signs (8 Hrs) Temp Pulse Resp BP Pulse Ox 11/14/16 11:16 37.8 C 70 20 104/58 L 91 L 11/14/16 07:45 36.9 C 97 20 129/70 H 91 L Intake/Output (24 Hrs) 11/13/16 11/14/16 11/15/16 05:59 05:59 05:59 Intake Total 450 2280 50 Output Total 3555 2450 350 Balance -3105 -170 -300 Intake: Oral (ml) 450 2230 IV Infused (ml) 50 50 cefTRIAXone 1 GM/DEXTROSE 50 50 50 ml @ 100 mls/hr IV DAILY [facility] Rx#:[id number] Output: Urine (ml) 3555 2450 350 Urinal 3555 2450 350 Other: Weight 86.7 kg 86.6 kg Number of Voids Urinal 1 Number of Stools Urinal 1 1 NAD, up in chair JVP 10 RRR II/ CRISTOFER throughout precordium Decreased breath sounds throughout but no wheezes, rhonchi, rales Trace bilateral ankle edema Result Diagrams: 11/14/16 03:55 11/14/16 03:55 Telemetry: AF; V paced. Occ PVCs ICD10 Worksheet Patient Problems: Problems Problem Status Onset Chronic Disease Mgmt/TCM Acute CHF (congestive heart failure) Acute Hypoxia Acute Pneumonia Acute Transitonal Care Acute
[2016-11-14] MEDS ORDERED: methylPREDNISolone SOD SUCC 125 MG/2 ML VIAL IVP ONE (14:21)
--- NOTE | 2016-11-14 14:25 | HOSPPROG ---
Hospitalist Progress Note Assessment/Plan: 81-year-old man with a history of heart disease including AFib status post pacemaker placement and TAVR presents with acute shortness of breath. The progression of his respiratory distress was quite rapid starting at 7:00 p.m. in the evening progressing to a productive cough with shakes and he was brought emergently to the ER in the middle of the night. Chest x-ray and CT scan revealed possible pulmonary edema versus multi lobar pneumonia. # acute respiratory distress unclear if this is secondary to pulmonary edema versus multi lobar pneumonia. Patient does have a new productive cough with some shakes on admission however has not had a white count or fever. He does have some expiratory wheezing and I wonder if some of this is reactive airways disease with his overall diminished breath sounds * Continue current antibiotics for community-acquired pneumonia. * Further evaluation of his heart function patient with suspected congestive heart failure * Treat for acute COPD exacerbation will add steroids today given increased oxygen # acute congestive heart failure. Patient with history of diastolic dysfunction and echocardiogram reveals increased TR and increased RV SP from August of 2016. Patient admits to 2 months of increasing shortness of breath and dyspnea on exertion he also has a 2 pillow orthopnea and lower extremity edema. * Continue IV Lasix today and transition to oral tomorrow. Chest x-ray personally reviewed and does look improved * Follow BNP * Will eventually follow up with the [facility] # severe aortic stenosis status post TAVR November 2014. 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 Currently on anticoagulation with Coumadin * Interrogate pacemaker * Recheck INR tomorrow # history of COPD, continue his respiratory medications * Continue duo nebs * Add steroids today # history of obstructive sleep apnea on CPAP at home moderate pulmonary hypertension on recent echo with RVSP of 48, today RVSP is 70 # coronary artery disease noted on a nuclear stress test with a small amount of ischemia noted and has been treated medically # DVT prophylaxis currently anticoagulated with Coumadin Disposition: Patient can likely go home in the next 1-2 days. Will do a trial of steroids today to see if that helps his respiratory status and decrease his oxygen needs. Overall his fluid status appears much improved from admission with his IV diuresis and he is likely close to euvolemic today. Will follow up with the [facility] and will need a copy was echo on discharge Defer to physical therapy regarding home care needs Subjective: Feeling better today. His lung sounds are fairly diminished and he does have some expiratory wheezing. He can't tell me if the nebs are helping him or not. Objective: Vital Signs Temp Pulse Resp BP Pulse Ox 37.8 C 70 20 104/58 L 91 L 11/14/16 11:16 11/14/16 11:16 11/14/16 11:16 11/14/16 11:16 11/14/16 11:16 Laboratory Results 11/14/16 03:55 11/14/16 03:55 11/13/16 11/14/16 11/15/16 05:59 05:59 05:59 Intake Total 450 2280 50 Output Total 3555 2450 350 Balance -3105 -170 -300 PT 25.6 SEC (12.0-15.0) H 11/14/16 03:55 INR 2.31 (0.83-1.16) H 11/14/16 03:55 - Physical Exam Constitutional: appears nourished, not in pain Eyes: PERRL, anicteric sclera, EOMI Ears, Nose, Mouth, Throat: moist mucous membranes, hearing normal Cardiovascular: regular rate and rhythym, systolic murmur, edema Respiratory: expiratory wheeze, inspiratory crackles (Basis), respiratory distress Gastrointestinal: normoactive bowel sounds, soft, non-tender abdomen, no palpable masses Genitourinary: no bladder fullness, No macias in urethra Skin: warm Musculoskeletal: no joint effusions Neurologic: AAOx3 Psychiatric: interacting appropriately, not anxious ICD10 Worksheet Patient Problems: Problems Problem Status Onset Chronic Disease Mgmt/TCM Acute CHF (congestive heart failure) Acute Hypoxia Acute Pneumonia Acute Transitonal Care Acute
[2016-11-14] MEDS: AZITHROMYCIN 250 MG TAB PO SCH (17:58)
[2016-11-14] MEDS: CETIRIZINE 10 MG TAB PO SCH (20:24)
[2016-11-14] MEDS: WARFARIN SODIUM 2.5 MG TAB PO SCH (20:24)
[2016-11-14] MEDS: DOXAZOSIN MESYLATE 4 MG TAB PO SCH (20:24)
[2016-11-14] MEDS: PRIMIDONE 50 MG TAB PO SCH (20:24)
[2016-11-14] MEDS: PRAVASTATIN SODIUM 20 MG TAB PO SCH (20:24)
[2016-11-15 05:47] LABS: INR 2.33 (0.83-1.16); PROTIME(PATIENT) 25.8 SEC (12.0-15.0)
[2016-11-15] MEDS: IPRATROPIUM/ALBUTEROL 3 ML DEYVIAL IH SCH ×2 (08:02→09:22)
[2016-11-15 08:35] VITALS: BP 137/78; TEMP 98.1
[2016-11-15] MEDS: FUROSEMIDE 40 MG/4 ML VIAL IVP SCH (08:43)
[2016-11-15] MEDS: METOPROLOL TARTRATE 50 MG TAB PO SCH (08:45)
[2016-11-15] MEDS: SENNOSIDES/DOCUSATE SODIUM TAB PO SCH (08:45)
[2016-11-15] MEDS: ASPIRIN 81 MG CHEWABLE TAB PO SCH (08:46)
[2016-11-15] MEDS: ASCORBIC ACID 500 MG TAB PO SCH (08:46)
[2016-11-15] MEDS: GLUCOSAMINE/CHONDROITIN CAP PO SCH (08:46)
[2016-11-15] MEDS: VALSARTAN 80 MG TAB PO SCH (08:47)
[2016-11-15] MEDS ORDERED: predniSONE 20 MG TAB PO SCH (09:00)
[2016-11-15] MEDS: FLUTICASONE/SALMETER 250/50MCG DISKUS IH SCH (09:22)
[2016-11-15 09:26] VITALS: PULSE 72; RESP 23
[2016-11-15 11:29] VITALS: O2SAT 92
--- NOTE | 2016-11-15 12:25 | PDDCSUM ---
Discharge Summary Discharge Summary: HPI AND HOSPITAL COURSE 81-year-old man with a history of heart disease including AFib status post pacemaker placement and TAVR presents with acute shortness of breath. The progression of his respiratory distress was quite rapid starting at 7:00 p.m. in the evening progressing to a productive cough with shakes and he was brought emergently to the ER in the middle of the night. Chest x-ray and CT scan revealed possible pulmonary edema versus multi lobar pneumonia. He was admitted and started on IV Abx and diuresed. He is not back to baseline, is euvolemic, and home medications have been restarted. He is on RA which is is his baseline. He will be discharge with the plan to cont abx, steroids, and home diuretics. See below for details per problem list. DDX: # acute respiratory distress unclear if this is secondary to pulmonary edema versus multi lobar pneumonia. * Augmentin * CHF is stable * Treat for acute COPD exacerbation will add steroids today given increased oxygen # acute congestive heart failure. Patient with history of diastolic dysfunction and echocardiogram reveals increased TR and increased RV SP from August of 2016. Patient admits to 2 months of increasing shortness of breath and dyspnea on exertion he also has a 2 pillow orthopnea and lower extremity edema. * On PO Lasix * Will eventually follow up with the [facility] # severe aortic stenosis status post TAVR November 2014. 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 Currently on anticoagulation with Coumadin * Interrogate pacemaker * cont Coumadin # history of COPD, continue his respiratory medications * Continue duo nebs * Prednisone, short course # history of obstructive sleep apnea on CPAP at home moderate pulmonary hypertension on recent echo with RVSP of 48, today RVSP is 70 # coronary artery disease noted on a nuclear stress test with a small amount of ischemia noted and has been treated medically Discharge Exam VSS on RA NAD, AAOX3 MMM NO JVD RRR CTA B S/NT/ND NO EDEMA DX MEDS: SEE MED REC F/U: WITH PCP NEXT WEEK. TOTAL CARE TIME SPENT ON DISCHARGE IS 35 MINUTES.
--- NOTE | 2016-11-15 12:43 | PDIAF ---
- Diagnosis Diagnosis: PNEUMONIA Code Status: Full Code - Medication Management Discharge Medications: Medications to Continue on Transfer Ascorbic Acid [Vitamin C 500 mg (*)] 500 mg PO BID 07/07/12 [Last Taken 11/08/16 ] Doxazosin Mesylate [Cardura 4 MG (*)] 4 mg PO HS 07/07/12 [Last Taken 11/08/16] Glucosam/Chondr/Collagn/Hyalur [Glucosamine & Chondroitin Cap] 1 each PO DAILY 07/07/12 [Last Taken 07/07/12] Loratadine [Claritin 10 mg] 10 mg PO HS 07/07/12 [Last Taken 11/08/16] Metoprolol Tartrate [Lopressor 50 mg (*)] 50 mg PO DAILY 07/07/12 [Last Taken ] Primidone [Mysoline] 125 mg PO HS 07/07/12 [Last Taken 11/08/16] Tiotropium Inhaler [Spiriva Inhaler (RX)] 1 inh IH DAILY 07/07/12 [Last Taken ] Valsartan [Diovan (*)] 80 mg PO DAILY 07/07/12 [Last Taken 11/08/16] Aspirin [Aspirin 81mg (*)] 81 mg PO DAILY 11/09/16 [Last Taken 11/08/16] Fluticasone/Salmeterol [Advair Hfa 115-21 Mcg Inhaler] 2 puffs IH DAILY [Last Taken 11/08/16] Furosemide [Lasix 20 MG (*)] 20 mg PO DAILY 11/09/16 [Last Taken 11/08/16] Herbals/Supplements -Info Only 1 ea PO DAILY 11/09/16 [Last Taken 11/08/16] SIMVASTATIN 10 mg PO HS 11/09/16 [Last Taken 11/08/16] Warfarin Sodium [Coumadin 2.5MG (*)] 3.75 mg PO HS 11/09/16 [Last Taken 11/08/16 ] Amoxicillin/Clavulanate Pot [Augmentin 875 MG TAB (*)] 875 mg PO BID #10 tab 12/27 [Last Taken Unknown] Azithromycin [Zithromax] 500 mg PO 1800 #3 tab 11/15/16 [Last Taken Unknown] predniSONE 40 mg PO DAILY #8 tablet 11/15/16 [Last Taken Unknown] Discharge Medications: Refer to the Discharge Home Medication list for PRN reason. - Orders Services needed: Home Care, Registered Nurse Home Care Face to Face: I certify that this patient was under my care and that I had the required [id number] encounter meeting the encounter requirements on the discharge day. My findings support the fact that the patient is homebound as defined in CMS Chapter 7 Medicare Benefits Manual 30.1.1, The condition of the patient is such that there exists a normal inability to leave home and consequently, leaving home would require a considerable and taxing effort. Diet Recommendation: cardiac -low fat low salt Diet Texture: Regular Texture Diet - Follow Up Care Current Providers and Referrals: PRUDENCE DEL CID [Primary Care Provider] - As per Instructions
--- NOTE | 2016-11-15 12:43 | PDCARPN ---
Cardiology Progress Note Assessment/Plan: Assessment/plan: 81 yo M with COPD, VHD (s/p TAVR in 2015; mod MR; mod-severe TR); HFpEF; AF with PPM. Also has PHTN and CAD based on coronary calcifications. Admitted 11/09 with cough, SOB, malaise, initally treated for pna. On 11/12 started IV diuretics. Appears clinically euvolemic. Does not appear ischemic. Still with O2 requirement 1. HFpEF; appears euvolemic. Transition to oral Lasix.. May be, in part, related to elevated transaortic gradients and residual MR. On appropriate BP management 2. Hypoxia: combination pna (on abx, question viral component) and CHF Along with COPD exacerbation.. Improved with antibiotics, steroids, and diuresis. 3. VHD: moderately elevated TAVR gradients. PHTn worse on echo here [place] [facility] Diuresis, BP control . 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 4. AF with PPM: on chronic warfarin 11/15/16 12:47 Subjective: neva feels a lot better since starting steroids. Shortness of breath and overall energy has improved. Denies angina Reviewed/Discussed With: hospitalist Objective: Vital Signs (8 Hrs) Temp Pulse Resp BP Pulse Ox 11/15/16 11:28 92 11/15/16 09:53 94 11/15/16 09:24 72 23 H 93 11/15/16 08:30 36.7 C 82 15 137/78 H 98 Intake/Output (24 Hrs) 11/14/16 11/15/16 11/16/16 05:59 05:59 05:59 Intake Total 2280 1850 50 Output Total 2450 1700 300 Balance -170 150 -250 Intake: Oral (ml) 2230 1800 IV Infused (ml) 50 50 50 cefTRIAXone 1 GM/DEXTROSE 50 50 50 50 ml @ 100 mls/hr IV DAILY [facility] Rx#:[id number] Output: Urine (ml) 2450 1700 300 Urinal 2450 1700 300 Other: Weight 86.6 kg 85.139 kg Number of Voids Urinal 1 2 Number of Stools Urinal 1 2 no acute distress. Sitting up in chair eating lunch. JVP less than 10 regular rate and rhythm with 2/6 mid-peaking systolic ejection murmur throughout the precordium. Lungs decreased breath sounds throughout all lung campos. No active wheezing, rhonchi or rales Extremities are without edema Result Diagrams: 11/14/16 03:55 11/14/16 03:55 ICD10 Worksheet Patient Problems: Problems Problem Status Onset Chronic Disease Mgmt/TCM Acute CHF (congestive heart failure) Acute Hypoxia Acute Pneumonia Acute Transitonal Care Acute
--- NOTE | 2016-11-15 14:02 | PDIAF ---
- Diagnosis Diagnosis: PNEUMONIA Code Status: Full Code - Medication Management Discharge Medications: Medications to Continue on Transfer Ascorbic Acid [Vitamin C 500 mg (*)] 500 mg PO BID 07/07/12 [Last Taken 11/08/16 ] Doxazosin Mesylate [Cardura 4 MG (*)] 4 mg PO HS 07/07/12 [Last Taken 11/08/16] Glucosam/Chondr/Collagn/Hyalur [Glucosamine & Chondroitin Cap] 1 each PO DAILY 07/07/12 [Last Taken 07/07/12] Loratadine [Claritin 10 mg] 10 mg PO HS 07/07/12 [Last Taken 11/08/16] Primidone [Mysoline] 125 mg PO HS 07/07/12 [Last Taken 11/08/16] Tiotropium Inhaler [Spiriva Inhaler (RX)] 1 inh IH DAILY 07/07/12 [Last Taken ] Valsartan [Diovan (*)] 80 mg PO DAILY 07/07/12 [Last Taken 11/08/16] Aspirin [Aspirin 81mg (*)] 81 mg PO DAILY 11/09/16 [Last Taken 11/08/16] Fluticasone/Salmeterol [Advair Hfa 115-21 Mcg Inhaler] 2 puffs IH DAILY [Last Taken 11/08/16] Furosemide [Lasix 20 MG (*)] 20 mg PO DAILY 11/09/16 [Last Taken 11/08/16] Herbals/Supplements -Info Only 1 ea PO DAILY 11/09/16 [Last Taken 11/08/16] SIMVASTATIN 10 mg PO HS 11/09/16 [Last Taken 11/08/16] Warfarin Sodium [Coumadin 2.5MG (*)] 3.75 mg PO HS 11/09/16 [Last Taken 11/08/16 ] Amoxicillin/Clavulanate Pot [Augmentin 875 MG TAB (*)] 875 mg PO BID #0 tab 12/27 [Last Taken Unknown] Amoxicillin/Clavulanate Pot [Augmentin 875 MG TAB (*)] 875 mg PO BID #10 tab 12/27 [Last Taken Unknown] Metoprolol Succinate Xr [Toprol Xl 50 mg (*)] 50 mg PO DAILY #30 tab 11/15/16 [ Last Taken Unknown] predniSONE 40 mg PO DAILY #8 tablet 11/15/16 [Last Taken Unknown] Discharge Medications: Refer to the Discharge Home Medication list for PRN reason. - Orders Services needed: Home Care, Registered Nurse Home Care Face to Face: I certify that this patient was under my care and that I had the required [id number] encounter meeting the encounter requirements on the discharge day. My findings support the fact that the patient is homebound as defined in CMS Chapter 7 Medicare Benefits Manual 30.1.1, The condition of the patient is such that there exists a normal inability to leave home and consequently, leaving home would require a considerable and taxing effort. Diet Recommendation: cardiac -low fat low salt Diet Texture: Regular Texture Diet - Follow Up Care Current Providers and Referrals: PRUDENCE DEL CID [Primary Care Provider] - As per Instructions
[2016-11-15] MEDS ORDERED: AMOXICILLIN/CLAVULANATE POT 875/125 MG TAB PO SCH (21:00)
[2016-11-16] MEDS ORDERED: METOPROLOL SUCCINATE XR 50 MG TAB PO SCH (09:00)
== END 2016-11-15 14:12 | disposition home health service (06) | DRG 193 ==
LOC: EDUNIT# → F2W 06:08
PROVIDERS: ADMIT Internal Medicine; ATTEND Internal Medicine
DX: J18.9 Pneumonia, unspecified organism (principal); J96.21 Acute and chronic respiratory failure with hypoxia; J44.1 Chronic obstructive pulmonary disease with (acute) exacerbation; I50.31 Acute diastolic (congestive) heart failure; I48.2 Chronic atrial fibrillation; I27.2 Other secondary pulmonary hypertension; G47.33 Obstructive sleep apnea (adult) (pediatric); I25.10 Atherosclerotic heart disease of native coronary artery without angina pectoris; Z95.0 Presence of cardiac pacemaker; Z95.2 Presence of prosthetic heart valve; Z87.891 Personal history of nicotine dependence; Z79.01 Long term (current) use of anticoagulants
CPT/HCPCS: 96365; J0456; J0696; Q9967

== ENCOUNTER → 2016-12-18 | Outpatient (CLI) | payer OTHER | LOC: FCPNEURO 20:00 | PROVIDERS: ATTEND Internal Medicine Sleep Medicine | DX: G47.33 Obstructive sleep apnea (adult) (pediatric) (principal); G47.36 Sleep related hypoventilation in conditions classified elsewhere; G47.61 Periodic limb movement disorder ==

== ENCOUNTER 2017-03-05 20:09 | Inpatient (IN) | payer OTHER ==
--- NOTE | 2017-03-05 20:38 | CPEKG ---
Heart Rate: 71 RR Interval: 845 QRSD Interval: 148 QT Interval: 452 QTC Interval: 492 QRS [place]: -84 T Wave [place]: 75 EKG Severity - ABNORMAL ECG - EKG Impression: AFIB/FLUTTER AND VENTRICULAR-PACED RHYTHM EKG Impression: unchanged from previous Electronically Signed By: Ivan James 05-Mar-2017 20:49:16
[2017-03-05] MEDS ORDERED: ALBUTEROL 3 ML DEYVIAL IH ONE (20:48)
--- NOTE | 2017-03-05 20:48 | EDPHY ---
H & P Stated Complaint: c/o sob/fever beginning today Time Seen by Provider: 03/05/17 20:29 HPI/ROS: CHIEF COMPLAINT: Shortness of breath, fever HISTORY OF PRESENT ILLNESS: The patient is an 82-year-old man with a history of CHF, COPD, AFib status post pacemaker placement and severe aortic stenosis status post aortic valve replacement on Coumadin who comes to the emergency department complaining of increased shortness of breath and a fever that began this morning. No cough. No chest pain. No abdominal pain. He typically wears 4 L of oxygen at night and none during the day. He has not had any leg swelling or edema. No rashes. No recent illness. He was admitted for similar reasons in October of this year and treated with Augmentin diuresed. REVIEW OF SYSTEMS: Constitutional: denies: chills, fever, recent illness, recent injury EENTM: denies: blurred vision, double vision, nose congestion Respiratory: See HPI Cardiac: denies: chest pain, irregular heart rate, lightheadedness, palpitations Gastrointestinal/Abdominal: denies: abdominal pain, diarrhea, nausea, vomiting, blood streaked stools Genitourinary: denies: dysuria, frequency, hematuria, pain Musculoskeletal: denies: joint pain, muscle pain Skin: denies: lesions, rash, jaundice, bruising Neurological: denies: headache, numbness, paresthesia, tingling, dizziness, weakness Hematologic/Lymphatic: denies: blood clots, easy bleeding, easy bruising Immunologic/allergic: denies: HIV/AIDS, transplant EXAM: GENERAL: Well-appearing, well-nourished and in no acute distress. HEAD: Atraumatic, normocephalic. EYES: Pupils equal round and reactive to light, extraocular movements intact, sclera anicteric, conjunctiva are normal. ENT: TMs normal, nares patent, oropharynx clear without exudates. Moist mucous membranes. NECK: Normal range of motion, supple without lymphadenopathy or JVD. LUNGS: Diffuse coarse breath sounds, no wheezing HEART: Regular rate and rhythm without murmurs, rubs or gallops. ABDOMEN: Soft, nontender, normoactive bowel sounds. No guarding, no rebound. No masses appreciated. BACK: No CVA tenderness, no spinal tenderness, step-offs or deformities EXTREMITIES: Normal range of motion, no pitting or edema. No clubbing or cyanosis. NEUROLOGICAL: Cranial nerves II through XII grossly intact. Normal speech, normal gait. 5/5 strength, normal movement in all extremities, normal sensation PSYCH: Normal mood, normal affect. SKIN: Warm, dry, normal turgor, no visible rashes or lesions. Source: Patient Exam Limitations: No limitations - Personal History Tetanus Vaccine Date: 2010 - Medical/Surgical History Hx Asthma: No Hx Chronic Respiratory Disease: Yes Hx Diabetes: No Hx Cardiac Disease: Yes Hx Renal Disease: No Hx Cirrhosis: No Hx Alcoholism: No Hx HIV/AIDS: No Hx Splenectomy or Spleen Trauma: No Other PMH: PSHx: pacemaker, gallbladder, hernia, heart valve replacement. PMHx : A Fib, COPD, CHF - Family History Significant Family History: No pertinent family hx - Social History Smoking Status: Former smoker Alcohol Use: Sober Drug Use: None Constitutional: Initial Vital Signs Heart Rate 94 03/05/17 20:15 Respiratory Rate 22 H 03/05/17 20:15 Blood Pressure 164/106 H 03/05/17 20:15 O2 Sat (%) 90 L 03/05/17 20:15 O2 Delivery Mode Nasal Cannula O2 (L/minute) 3 Allergies/Adverse Reactions: codeine [Codeine] Allergy (Verified 03/05/17 20:17) Home Medications: Medication Instructions Recorded Ascorbic Acid [Vitamin C 500 mg 500 mg PO BID 07/07/12 (*)] Doxazosin Mesylate [Cardura 4 MG 4 mg PO HS 07/07/12 (*)] Glucosam/Chondr/Collagn/Hyalur 1 each PO DAILY 07/07/12 [Glucosamine & Chondroitin Cap] Loratadine [Claritin 10 mg] 10 mg PO HS 07/07/12 Primidone [Mysoline] 125 mg PO HS 07/07/12 Tiotropium Inhaler [Spiriva 1 inh IH DAILY 07/07/12 Inhaler (RX)] Valsartan [Diovan (*)] 80 mg PO DAILY 07/07/12 Aspirin [Aspirin 81mg (*)] 81 mg PO DAILY 11/09/16 Fluticasone/Salmeterol [Advair Hfa 2 puffs IH DAILY 11/09/16 115-21 Mcg Inhaler] Furosemide [Lasix 20 MG (*)] 20 mg PO DAILY 11/09/16 Herbals/Supplements -Info Only 1 ea PO DAILY 11/09/16 SIMVASTATIN 10 mg PO HS 11/09/16 Warfarin Sodium [Coumadin 2.5MG 3.75 mg PO DAILY 11/09/16 (*)] Metoprolol Succinate Xr [Toprol Xl 50 mg PO DAILY #30 tab 11/15/16 50 mg (*)] Hydrochlorothiazide [HCTZ (*)] 25 mg PO DAILY 03/05/17 Medical Decision Making - Diagnostics EKG Interpretation: An EKG obtained and was read and documented in trace view. Please see trace view for full reading and report. Ventricular paced rhythm unchanged from previous Imaging Results: X-ray: chest x-ray was obtained. I viewed the images myself on the PACS system. My interpretation of the images is: Multilobar right-sided pneumonia. The radiologist interpretation is pending. ED Course/Re-evaluation: Patient has a multilobar pneumonia on the right side. I will start him on azithromycin and Rocephin admit him to the medical service. We will minimize his fluids because of his propensity towards congestive heart failure. Thus far he does not qualify for severe sepsis but INR will need to be repeated. It will likely be elevated because he is on Coumadin. I will not treat the patient with a 30 milligram/kilogram bolus because this would be detrimental to his overall care. He will receive fluids along with antibiotics. 9:20 p.m. discussed the case with Dr. Mazin Gatica who will admit for pneumonia. He agrees with plan thus far. Differential Diagnosis: Partial list of the Differential diagnosis considered include but were not limited to; pneumonia, CHF exacerbation and although unlikely based on the history and physical exam, I also considered COPD, PE, acute coronary disease. Critical Care Time: Critical care time spent by me, Dr. James exclusive with this patient was 35 minutes, exclusive of the PA time exclusive of procedures. The organ system that was at risk was multi system and I gave IV fluids, antibiotics and consultation to prevent worsening of the patient's condition - Data Points Laboratory Results: Laboratory Results 03/05/17 20:35 03/05/17 20:35 Medications Given: Discontinued Medications Albuterol (Proventil Neb) 3 ml IH EDNOW ONE Stop: 03/05/17 20:49 Last Admin: 03/05/17 21:00 Dose: 3 ml Azithromycin 500 mg/ Dextrose 255 mls @ 255 mls/hr IV DAILY [facility] PRN Reason: Protocol Stop: 04/04/17 21:29 Last Admin: 03/05/17 22:02 Dose: 255 mls Ceftriaxone Sodium/Dextrose (Rocephin 1 Gm (Premix)) 50 mls @ 100 mls/hr IV DAILY [facility] PRN Reason: Protocol Stop: 04/04/17 21:29 Last Admin: 03/05/17 21:40 Dose: 50 mls Sodium Chloride (Ns) 1,000 mls @ 125 mls/hr IV CONT [facility] Stop: 03/06/17 08:14 Last Admin: 03/06/17 00:36 Dose: 1,000 mls Departure - Departure Disposition: [facility] Inpatient Acute Clinical Impression: Severe sepsis Pneumonia Qualifiers: Pneumonia type: due to unspecified organism Laterality: right Lung location: lower lobe of lung Qualified Code(s): J18.1 - Lobar pneumonia, unspecified organism Condition: Fair
[2017-03-05 20:50] LABS: % IMMATURE GRANULYOCYTES 0.2 % (0.0-1.1); ABSOLUTE IMMATURE GRANULOCYTES 0.02 10^3/uL (0.00-0.10); ADD DIFF? NO; ADD MORPH? NO; ADD SCAN? NO; ATYPICAL LYMPHOCYTE FLAG 10 (0-99); FRAGMENT RBC FLAG 0 (0-99); HEMATOCRIT 41.6 % (40.0-51.0); HEMOGLOBIN 14.5 g/dL (13.7-17.5); LEFT SHIFT FLG 0 (0-99); LIPEMIA HEMOLYSIS FLAG 90 (0-99); MEAN CELL HEMOGLOBIN 32.5 pg (27.9-34.1); MEAN CELL HEMOGLOBIN CONCENTR. 34.9 g/dL (32.4-36.7); MEAN CELL VOLUME 93.3 fL (81.5-99.8); MEAN PLATELET VOLUME 11.4 fL (8.7-11.7); PLATELET CLUMPS FLAG 10 (0-99); PLATELET COUNT 115 10^3/uL (150-400); RED BLOOD CELL COUNT 4.46 10^6/uL (4.40-6.38); RED CELL DISTRIBUTION WIDTH 14.1 % (11.5-15.2)
[2017-03-05 21:01] LABS: ANION GAP 12 mEq/L (8-16); BILIRUBIN,TOTAL 1.3 mg/dL (0.1-1.4); CALCIUM 9.1 mg/dL (8.5-10.4); CARBON DIOXIDE 23 mEq/l (22-31); CHLORIDE 100 mEq/L (97-110); CREATININE 0.9 mg/dL (0.7-1.3); GLOMERULAR FILTRATION RATE > 60; GLUCOSE 126 mg/dL (70-100); POTASSIUM 4.4 mEq/L (3.5-5.2); SODIUM 135 mEq/L (134-144)
[2017-03-05] MEDS ORDERED: AZITHROMYCIN IV 500 MG in D5W 250 ML IV SCH (21:30)
[2017-03-06] MEDS ORDERED: ONDANSETRON DISINTEGRATING 4 MG TAB PO PRN (00:02)
[2017-03-06] MEDS ORDERED: ALBUTEROL 3 ML DEYVIAL IH PRN (00:02)
[2017-03-06] MEDS ORDERED: ACETAMINOPHEN 325 MG TAB PO PRN (00:02)
[2017-03-06] MEDS ORDERED: ONDANSETRON 4 MG/2 ML VIAL IVP PRN (00:02)
[2017-03-06] MEDS ORDERED: NS 1,000 ML IV SCH (00:15)
--- NOTE | 2017-03-06 00:47 | GHP ---
[f rep st] HISTORY AND PHYSICAL DATE OF ADMISSION: 03/05/2017 HISTORY OF PRESENT ILLNESS: The patient is a pleasant 82-year-old gentleman with history of TAVR, p reserved EF, congestive heart failure, COPD on home oxygen, sleep apnea, presents with sudden onset of fever and cough. He felt well yesterday. Did not have night sweats last night. He is taking ca re of his young grandson, who has strep but exposure was on Sunday, which was 3 days prior to admiss ion. He said he ate poorly today. He is not having diarrhea or nausea or vomiting. He does not co ugh when he eats. He has no rash on his skin. He was admitted is October of this year for pneumonia without a microbiologic diagnosis. He has no urgency, frequency, or dysuria. No nausea, vomiting, diarrhea. He does not have PND or o rthopnea, and his lower extremity edema is at about baseline. REVIEW OF SYSTEMS: Complete 10-point Review of Systems conducted and negative except as noted in th e HPI. PAST MEDICAL HISTORY: 1. Rheumatic mitral valve disease, status post repair. 2. AFib, status post ablation and pacemaker. 3. Status post TAVR. 4. Chronic respiratory failure on nocturnal oxygen. 5. JAE on CPAP. 6. Tremor of left hand. 7. Hypertension. 8. History of cholecystectomy and knee arthroscopy. 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 He quit smoking 40 years ago. Rare alcohol. Lives his . FAMILY HISTORY: His father had heart disease, ALLERGIES: CODEINE. HOME MEDICATIONS: Lasix, vitamin C, aspirin, doxazosin, Advair, glucosamine, hydrochlorothiazide, l oratadine, metoprolol, primidone, simvastatin, tiotropium, valsartan, warfarin. PHYSICAL EXAM: VITAL SIGNS: Temp 38.1, blood pressure 117/76, pulse 78, breathing 22 times a minut e, 97% on 4 L. GENERAL: No acute distress. HEENT: Sclerae anicteric. Oropharynx clear. Mucous membranes are moist. NECK: Supple without lymphadenopathy or JVD. LUNGS: Show rhonchi bilaterall y with decreased breath sounds and crackles in the right side. HEART: S1, S2. Without murmur. AB DOMEN: Soft, nontender, nondistended. EXTREMITIES: There is trace lower extremity edema bilateral ly. Calves are nontender. SKIN: Without rash. NEUROLOGIC: Nonfocal. DIAGNOSTIC STUDIES: Chest x-ray, interpreted by me, shows right middle lobe pneumonia. Pacemaker i n place. Cardiomegaly without heart failure. EKG, interpreted by me, shows atrial paced rhythm. L eft bundle branch block pattern. I discussed the case with Dr. Ivan James. ASSESSMENT: The patient is an 82-year-old gentle with community-acquired pneumonia. 1. Community-acquired pneumonia. He was hospitalized 4 months ago, treated for pneumonia. I think it is reasonable to proceed with ceftriaxone and azithromycin. If he is febrile for longer than 24 hours, then coverage should be escalated. I think we are out of flu season. It is noted to be rig ht-sided pneumonia but will hold off on speech evaluation at this time. 2. History of atrial fibrillation. Continue his warfarin. Currently rate controlled. Continue his beta ivis. 3. History of TAVR. The patient received a lower than expected bolus for infection. We will follo w. He is currently hemodynamically stable and not tachycardic. Germán agent noted. 4. Nocturnal hypoxia with hypoxemic respiratory failure. Continue his nocturnal oxygen. He can br ing his CPAP in tomorrow. 5. Prophylaxis. He is therapeutically anticoagulated. 6. Disposition. Inpatient status. /[id number]/MODL
[2017-03-06] MEDS: ASCORBIC ACID 500 MG TAB PO SCH ×3 (01:53→20:44)
[2017-03-06] MEDS: PRAVASTATIN SODIUM 20 MG TAB PO SCH ×2 (01:53→20:44)
[2017-03-06] MEDS: CETIRIZINE 10 MG TAB PO SCH ×2 (01:53→20:44)
[2017-03-06] MEDS: DOXAZOSIN MESYLATE 4 MG TAB PO SCH ×2 (01:53→20:44)
[2017-03-06] MEDS: PRIMIDONE 50 MG TAB PO SCH ×2 (01:55→20:43)
[2017-03-06 04:28] LABS: % IMMATURE GRANULYOCYTES 0.3 % (0.0-1.1); ABSOLUTE IMMATURE GRANULOCYTES 0.02 10^3/uL (0.00-0.10); ADD DIFF? NO; ADD MORPH? NO; ADD SCAN? NO; ATYPICAL LYMPHOCYTE FLAG 0 (0-99); FRAGMENT RBC FLAG 0 (0-99); HEMATOCRIT 38.6 % (40.0-51.0); HEMOGLOBIN 13.2 g/dL (13.7-17.5); LEFT SHIFT FLG 40 (0-99); LIPEMIA HEMOLYSIS FLAG 90 (0-99); MEAN CELL HEMOGLOBIN 32.2 pg (27.9-34.1); MEAN CELL HEMOGLOBIN CONCENTR. 34.2 g/dL (32.4-36.7); MEAN CELL VOLUME 94.1 fL (81.5-99.8); MEAN PLATELET VOLUME 11.2 fL (8.7-11.7); PLATELET CLUMPS FLAG 0 (0-99); PLATELET COUNT 89 10^3/uL (150-400); RED CELL DISTRIBUTION WIDTH 14.2 % (11.5-15.2)
[2017-03-06 04:37] LABS: INR 2.54 (0.83-1.16); PROTIME(PATIENT) 27.6 SEC (12.0-15.0)
[2017-03-06 04:40] LABS: ANION GAP 11 mEq/L (8-16); CALCIUM 8.6 mg/dL (8.5-10.4); CARBON DIOXIDE 25 mEq/l (22-31); CHLORIDE 100 mEq/L (97-110); CREATININE 0.9 mg/dL (0.7-1.3); GLOMERULAR FILTRATION RATE > 60; GLUCOSE 132 mg/dL (70-100); POTASSIUM 4.2 mEq/L (3.5-5.2); SODIUM 136 mEq/L (134-144)
[2017-03-06] MEDS: IPRATROPIUM/ALBUTEROL 3 ML DEYVIAL IH SCH ×4 (06:22→21:47)
--- NOTE | 2017-03-06 08:58 | HOSPPROG ---
Hospitalist Progress Note Assessment/Plan: Ramírez is a 82-year-old male with a history of a TAVR, CHF, COPD presented with sudden onset of fever and cough. He was taking care of his grandson who has strep. Today is my 1st encounter with the patient. Chart reviewed. * Community-acquired pneumonia on ceftriaxone and azithromycin chest x-ray reveals a right-sided pneumonia (middle lobe) * history of atrial fibrillation on oral anticoagulation and rate controlled with beta-ivis INR is 2.54 * thrombocytopenia bit lower than his baseline will follow * history of TAVR a few years ago *hypoxemic respiratory failure/chronic on 3 liters at baseline/ close to his baseline on this admission *Plan: will check a BNP/ I am concerned he may be having a bit of heart failure / he has been having worsening shortness of breath w activity/ will ask cardiology to get involved/ he had an echo of November this year and was seen by Akila Weathers. Subjective: Mani is feeling marginal/ is very short of breath with talking and activity. Objective: Vital Signs Temp Pulse Resp BP Pulse Ox 37.4 C 70 24 H 109/62 97 03/06/17 07:26 03/06/17 07:26 03/06/17 07:26 03/06/17 07:26 03/06/17 07:26 Laboratory Results 03/06/17 04:14 03/06/17 04:14 03/05/17 03/06/17 03/07/17 05:59 05:59 05:59 Intake Total 200 Output Total 150 Balance 50 PT 27.6 SEC (12.0-15.0) H 03/06/17 04:14 INR 2.54 (0.83-1.16) H 03/06/17 04:14 - Physical Exam Constitutional: chronically ill appearing, uncomfortable Eyes: PERRL Ears, Nose, Mouth, Throat: hearing normal Cardiovascular: regular rate and rhythym, JVD Respiratory: no rales or rhonchi, reduced air movement (biasilar) Gastrointestinal: normoactive bowel sounds Skin: warm Musculoskeletal: full muscle strength Neurologic: AAOx3 Psychiatric: interacting appropriately ICD10 Worksheet Patient Problems: Problems Problem Status Onset CHF (congestive heart failure) Acute Chronic Disease Mgmt/TCM Acute Hypoxia Acute Pneumonia Acute Transitonal Care Acute
[2017-03-06] MEDS ORDERED: ASCORBIC ACID 500 MG TAB PO SCH (09:00)
[2017-03-06] MEDS ORDERED: Herbals/Supplements -Info Only PO SCH (09:00)
[2017-03-06] MEDS ORDERED: NON-FORMULARY NEW DRUG (Glucosam/Chondr/Collagn/Hyalur [Glucosamine & Chondroitin Cap] 1 E PO SCH (09:00)
[2017-03-06] MEDS ORDERED: AZITHROMYCIN IV 500 MG in D5W 250 ML IV SCH (09:00)
[2017-03-06] MEDS: METOPROLOL SUCCINATE XR 50 MG TAB PO SCH (10:11)
[2017-03-06] MEDS: GLUCOSAMINE/CHONDROITIN CAP PO SCH (10:11)
[2017-03-06] MEDS: WARFARIN SODIUM 2.5 MG TAB PO SCH (10:11)
[2017-03-06] MEDS: VALSARTAN 80 MG TAB PO SCH (10:12)
[2017-03-06] MEDS: HYDROCHLOROTHIAZIDE 25 MG TAB PO SCH (10:12)
[2017-03-06] MEDS: ASPIRIN 81 MG CHEWABLE TAB PO SCH (10:12)
[2017-03-06] MEDS: Fluticasone/Salmeterol [Advair Hfa 115-21 Mcg Inhaler] IH SCH (10:56)
[2017-03-06] MEDS: TIOTROPIUM INHALER 18 MCG/DOSE 5 DOSE/MDI IH SCH (10:56)
[2017-03-06] MEDS ORDERED: FUROSEMIDE 20 MG/2 ML VIAL IVP ONE (16:08)
--- NOTE | 2017-03-06 17:59 | GHP ---
[f rep st] HISTORY AND PHYSICAL DATE OF ADMISSION: 03/05/2017 REASON FOR CONSULTATION: We were asked to consult by the hospitalists for possible congestive heart failure exacerbation. HISTORY OF PRESENT ILLNESS: Mr. Solares is an 82-year-old man with past history of a TAVR, CHF, COPD, past history of atrial fibrillation status post ablation with pacemaker placement. He has known COPD and obstructive sleep apnea for which he uses CPAP at night. He presented to the emergency room feeling poorly with diarrhea and nausea and vomiting. He had been caring for his grandson, who had strep. In October of this year, he was hospitalized for pneumonia. His chest x-ray revealed right-sided pneumonia and he currently is being treated with ceftriaxone and azithromycin. He had a BNP done this morning showing result of 2020. He had been on Lasix 20 mg daily at home and has had no Lasix since admission 03/05/2017. Today, he was complaining of worsening shortness of breath with activity prompting the request for Cardiology to consult. On arrival, I found Mr. Solares sleeping contently. He aroused easily and was talkative. He has no shortness of breath with inactivity; however, he said when he gets up to the bathroom, he had been feeling short of breath today. He feels better this afternoon than he did earlier in the day. He does have history of atrial fibrillation and remains on anticoagulation therapy and rate control on metoprolol. His INR today was 2.54. At time of visit, he is breathing easy and has no complaint of shortness of breath. REVIEW OF SYSTEMS: Complete 10-point review was negative except for that noted in the HPI. PAST MEDICAL HISTORY: 1. TAVR in 2014. 2. Atrial fibrillation post ablation. 3. Permanent pacemaker. 4. Obstructive sleep apnea using CPAP. 5. Hypertension. SOCIAL HISTORY: He lives at home with his . He has a past history of smoking quitting 40 years ago. Occasional alcohol use. FAMILY HISTORY: History of coronary artery disease in his father. PHYSICAL EXAMINATION: VITAL SIGNS: Blood pressure 98/52, heart rate 72, respirations 16, oxygen saturation 95%, temperature 37.3. GENERAL: He is in no distress. HEENT: Sclerae are white. Hearing acute. Normocephalic. CARDIAC: JVP normal. Carotids are equal and 2+ without bruits. Heart rate regular with 2/6 systolic murmur. LUNGS: Diminished sounds in lower lobes. No wheezes, rales, or rhonchi noted. ABDOMEN: Soft and nontender. No distention noted. No masses. Bowel sounds equal in all 4 quadrants. EXTREMITIES: Warm with trace ankle edema and venous insufficiency. NEUROLOGIC : Alert and oriented x3. Disposition is appropriate. MEDICATIONS: Albuterol 3 mL inhaled every 2 hours as needed, DuoNeb 3 mL inhaled 4 times daily, vitamin C 500 mg twice daily, aspirin 81 mg daily, azithromycin 500 mg IV, Rocephin 1 g IV, Zyrtec 10 mg at bedtime, Cardura 4 mg at bedtime, glucosamine chondroitin 1 daily, hydrochlorothiazide 25 mg daily, primidone 125 mg at bedtime, Pravachol 20 mg at bedtime, Zyrtec 10 mg at bedtime , metoprolol 50 mg daily, Spiriva 18 mcg inhaled daily, Diovan 80 mg daily, Coumadin 3.75 mg daily. ALLERGIES: Codeine. LABORATORY AND X-RAY DATA: He had a chest x-ray on 03/05/2017, showing right middle lobe pneumonia. CBC done 03/06/2017: White blood count 6.41, red blood count 4.10, hemoglobin 13.2, hematocrit 38.6, platelet count 89, neutrophils 81.2, lymphocytes 11.4, monos 6.6. INR 2.54. Sodium 136, potassium 4.2, chloride 100, carbon dioxide 25, anion gap 11, BUN 21, creatinine 0.9, estimated GFR greater than 60, glucose 132, calcium 8.6. BNP 2030. EKG on , showed a heart rate of 71, atrial fib flutter with ventricular paced rhythm. This is unchanged from previous. IMPRESSION AND PLAN: He has a history of transcatheter aortic valve replacement in 2014, chronic atrial fibrillation with pacemaker in place. He takes Lasix 20 mg routinely at home. He now has pneumonia that is likely contributing to heart failure. He likely would benefit from continued Lasix. Would recommend: 1. IV Lasix 20 mg today then resume Lasix 20 mg daily. Will need to follow closely his renal functions and electrolytes. He will have a BNP and complete metabolic panel in the morning. 2. Recommend echocardiogram to evaluate the status of his aortic valve. He has known mitral and tricuspid regurgitation with pulmonary hypertension. We will further evaluate with echocardiogram for any progression of his cardiac valve status. 3. Atrial fibrillation. This is chronic. He is on warfarin for anticoagulation. He has a pacemaker in place. 4. We will continue to follow along closely. Thank you very much for asking us to be a part of this gentleman's care. /[id number]/MODL MTDD
[2017-03-06] MEDS: AZITHROMYCIN IV 500 MG in D5W 250 ML IV SCH (20:48)
[2017-03-06] MEDS ORDERED: CETIRIZINE 10 MG TAB PO SCH (21:00)
[2017-03-06] MEDS ORDERED: NON-FORMULARY NEW DRUG (Simvastatin [Simvastatin] 10 MG) PO SCH (21:00)
[2017-03-06] MEDS ORDERED: PRAVASTATIN SODIUM 20 MG TAB PO SCH (21:00)
[2017-03-06] MEDS ORDERED: PRIMIDONE 50 MG TAB PO SCH (21:00)
[2017-03-06] MEDS ORDERED: NON-FORMULARY NEW DRUG (Loratadine [Claritin 10 Mg] 10 MG) PO SCH (21:00)
[2017-03-06] MEDS ORDERED: DOXAZOSIN MESYLATE 4 MG TAB PO SCH (21:00)
[2017-03-07 06:13] LABS: ALANINE AMINOTRANSFERASE 27 IU/L (21-72); ALBUMIN 3.1 g/dL (3.5-5.0); ALKALINE PHOSPHATASE 77 IU/L (38-126); ANION GAP 10 mEq/L (8-16); ASPARTATE AMINOTRANSFERASE 22 IU/L (17-59); BILIRUBIN,TOTAL 0.9 mg/dL (0.1-1.4); CALCIUM 8.1 mg/dL (8.5-10.4); CARBON DIOXIDE 26 mEq/l (22-31); CHLORIDE 100 mEq/L (97-110); CREATININE 0.9 mg/dL (0.7-1.3); GLOMERULAR FILTRATION RATE > 60; GLUCOSE 99 mg/dL (70-100); POTASSIUM 3.9 mEq/L (3.5-5.2); SODIUM 136 mEq/L (134-144); TOTAL PROTEIN 5.5 g/dL (6.3-8.2)
[2017-03-07] MEDS: IPRATROPIUM/ALBUTEROL 3 ML DEYVIAL IH SCH ×4 (06:13→21:43)
[2017-03-07 06:40] LABS: INR 2.61 (0.83-1.16); PROTIME(PATIENT) 28.2 SEC (12.0-15.0)
[2017-03-07] MEDS: GLUCOSAMINE/CHONDROITIN CAP PO SCH (09:03)
[2017-03-07] MEDS: HYDROCHLOROTHIAZIDE 25 MG TAB PO SCH (09:03)
[2017-03-07] MEDS: ASPIRIN 81 MG CHEWABLE TAB PO SCH (09:03)
[2017-03-07] MEDS: FUROSEMIDE 20 MG TAB PO SCH (09:03)
[2017-03-07] MEDS: ASCORBIC ACID 500 MG TAB PO SCH ×2 (09:03→20:26)
[2017-03-07] MEDS: Fluticasone/Salmeterol [Advair Hfa 115-21 Mcg Inhaler] IH SCH (09:04)
[2017-03-07] MEDS: TIOTROPIUM INHALER 18 MCG/DOSE 5 DOSE/MDI IH SCH (09:04)
[2017-03-07] MEDS: WARFARIN SODIUM 2.5 MG TAB PO SCH (09:14)
[2017-03-07] MEDS: METOPROLOL SUCCINATE XR 50 MG TAB PO SCH (09:14)
[2017-03-07] MEDS: VALSARTAN 80 MG TAB PO SCH (09:15)
[2017-03-07] MEDS ORDERED: FUROSEMIDE 20 MG TAB PO SCH (12:45)
--- NOTE | 2017-03-07 14:11 | ECHO ---
[id number] + + [address] : : [place] [address] : : [phone] + + Adult Echocardiographic Report + -------+ :Name: KAVITHA MILES LStudy Date: 03/07/2017 09:15 AM : : Hospital Admission Number: [id number] Locati on: 373: :: 1935 Gender: Male Height: 70 in : :Age: 82 yrs Race: WH Weight: 184 lb : :Reason For Study: SOB : : BSA: 2.0 meter s2 : + -------+ MMode/2D Measurements \T\ Calculations IVSd: 0.83 cm LVIDd: 4.6 cm EDV(Teich): Ao root diam: LVPWd: 0.85 cm 95.4 ml 3.8 cm LA dimension: 4.7 cm LVLd ap4: 8.3 cm SV(MOD-sp4): EDV(MOD-sp4): 58.0 ml 83.0 ml LVLs ap4: 6.4 cm ESV(MOD-sp4): 25.0 ml EF(MOD-sp4): 69.9 % Normal Measurement Values: + + :LVIDd (3.5-5.7cm) IVSd (0.6-1.1cm) LVPWd (0.6-1.1cm) Aortic Root (2.0-3.7cm)Left Atrium (1.5-4.0cm): :LV Vol(d) (76-115ml) LV Vol(s) (29-48ml) Ejec Fraction (50-65%)PV Pj (0.6- 1.2m/s) TV Pj (0.4-1.0m/s) : :MV E Pj (0.8-1.0m/s)MV A Pj (0.3-1.0m/s)LVOT Pj (0.7-1.2m/s) Asc Ao Pj ( 0.9-1.8m/s) : + + Doppler Measurements \T\ Calculations MV E max pj: MV V2 mean: Ao mean PG: TR max pj: 177.0 cm/sec 84.4 cm/sec 22.7 mmHg 341.5 cm/sec MV A max pj: MV mean PG: Ao V2 mean: TR max P.9 cm/sec 3.7 mmHg 223.5 cm/sec 46.6 mmHg MV E/A: 2.9 MV V2 VTI: 42.2 cmAo V2 VTI: 61.4 cm RAP systole: MV dec time: 10.0 mmHg 0.28 sec RVSP(TR): 56.6 mmHg Left Ventricle The left ventricle is normal in size. There is normal left ventricular wall thickness. The left ventricle is hyperdynamic. Ejection Fraction = 70-75%. Septal motion is consistent with conduction abnormality. Right Ventricle The right ventricle is normal in size and function. There is a pacemaker lead in the right ventricle. Atria The left atrium is severely dilated. The right atrium is moderate to severely dilated. The interatrial septum is intact with no evidence for an atrial septal defect. Mitral Valve There is moderate to severe mitral annular calcification. There is no evidence of mitral valve prolapse. There is mild mitral stenosis. There is mild to moderate mitral regurgitation. Tricuspid Valve Normal tricuspid valve. Right ventricular systolic pressure is 57mmHg. There is Doppler evidence for mild pulmonary hypertension. There is moderate tricuspid regurgitation. Aortic Valve Previous TAVR. Moderate valvular aortic stenosis. AV max PG is 37mmHG. AV mean PG is 23mmHG. There is no aortic insufficiency. Pulmonic Valve The pulmonic valve is normal in structure and function. Trace pulmonic valvular regurgitation. Great Vessels The aortic root is normal size. Pericardium/Pleural There is no pericardial effusion. Conclusion A complete two-dimensional transthoracic echocardiogram was performed (2D, M-mode, Doppler and color flow Doppler). The left ventricle is hyperdynamic. Ejection Fraction = 70-75%. Septal motion is consistent with conduction abnormality. There is a pacemaker lead in the right ventricle. The left atrium is severely dilated. The right atrium is moderate to severely dilated. There is moderate to severe mitral annular calcification. There is mild mitral stenosis. There is mild to moderate mitral regurgitation. There is moderate tricuspid regurgitation. There is Doppler evidence for mild pulmonary hypertension. Right ventricular systolic pressure is 57mmHg. Previous TAVR. Moderate valvular aortic stenosis. AV max PG is 37mmHG. AV mean PG is 23mmHG. Trace pulmonic valvular regurgitation. Final Reading Physician: Ivan Villafuerte signed on 03/07/2017 02:09 PM Ordering Physician: Eun Nguyen Performed By: Benita Stout, KRISTENCS
[2017-03-07] MEDS ORDERED: FUROSEMIDE 20 MG/2 ML VIAL IVP ONE (15:12)
[2017-03-07] MEDS ORDERED: POTASSIUM CL 10 MEQ TAB PO ONE (15:13)
--- NOTE | 2017-03-07 17:38 | PDCARPN ---
Cardiology Progress Note Chief Complaint: Patient reports shortness of breath has improved. Assessment/Plan: Assessment: 82-year-old male with history aortic valve disease, status post TAVR, CHF, COPD , chronic atrial fibrillation, status post ablation, ppm implantation, obstructive sleep apnea CPAP. Recently diagnosed with right-sided pneumonia. EKG on admission showing atrial fibrillation as underlying rhythm ventricular paced beats. Found yesterday to have elevated BNP 2020 and increased shortness of breath. IV Lasix given last evening. Reporting improvement in symptoms. Has had no chest pain or pressure. Echocardiogram done 03/07/2017 showing LV hyperdynamic with EF of 70 75%, septal motion consistent with conduction abnormality or pacemaker. LA is severely dilated, RA is moderately to severely dilated, moderate to severe mitral annular calcification, mild MS, mild-to- moderate MR, moderate TR, RVSP P 50 7 mm Hg, previous TAVR moderate valvular aortic stenosis, peak gradient 37 mm of mercury, mean gradient 23 mm Hg, trace TR. Today patient reports significant improvement in shortness of breath. Continues to have mild peripheral edema, JVD 4-5 cm, off of poorly monitored. BNP down to 1200. Plan: 1. Acute/Chronic diastolic heart failure: Improvement with IV diuresis of Lasix. Resumed home dosage of oral Lasix. Appears to be still mildly fluid overloaded, repeat IV Lasix of 20 mg p.o. q.day. Potassium 3.9 today, will supplement with 10 mEq KCL today. Daily weights. Continue home dose of Lasix. Repeat BMP in a.m. 2. Valvular heart disease: s/p TAVR, mild gradient across aortic valve. Moderate MR. Diuresis as above. Continue on home cardiac medications. 3. Chronic atrial fibrillation: Status post AV day ablation, ventricular paced beats. Pulse is regular. INR therapeutic today at 2.61, continue on home dosing warfarin. 4. Hypoxia: Improvement with diuresis. Continue on oxygen therapy 5. Community-acquired pneumonia: On antibiotic therapy per hospital services. 03/07/17 17:37 Subjective: Patient denies of any chest pressure or pain, denies of any palpitations, lightheadedness, near-syncope or syncopal events. Reports improvement in shortness of breath with IV diuresis. Reviewed/Discussed With: hospitalist (Ria Beckett NP), other (Dr Gongora) Objective: Vital Signs (8 Hrs) Temp Pulse Resp BP Pulse Ox 03/07/17 16:51 77 95 03/07/17 15:53 37.5 C 70 16 97/53 L 94 03/07/17 12:10 76 16 98 03/07/17 11:25 36.8 C 65 16 151/86 H 94 03/07/17 11:01 36.9 C 73 16 103/59 L 90 L Intake/Output (24 Hrs) 03/06/17 03/07/17 03/08/17 05:59 05:59 05:59 Intake Total 200 900 Output Total 150 375 Balance 50 900 -375 Intake: IV Intake (ml) 900 IV Infused (ml) 200 Output: Urine (ml) 150 375 Urinal 150 375 Other: Weight 83.461 kg Intake Quantity Yes Sufficient Result Diagrams: 03/06/17 04:14 03/07/17 04:19 - Physical Exam Constitutional: WDWN, no apparent distress Ears, Nose, Mouth, Throat: moist mucous membranes Cardiovascular: regular rate and rhythm, no rubs, systolic murmur (4/6 right and left upper chest, radiating into the carotids), jugular vein distention (5- 6 cm above sternal notch at 45 degree angle), pulses symmetric bilat Peripheral Pulses: 1+: dorsalis-pedis (R), dorsalis-pedis (L), 2+: carotid (R), carotid (L) Respiratory: other (Mild rales in bases, no rhonchi or wheezing noted. No accessary muscle use, no intercostal muscle retraction noted.) Gastrointestinal: normoactive bowel sounds Skin: no rashes, warm, No no edema (+1 peripheral edema bilateral lower extremities to knees.) Neurologic: AAOx3 Psychiatric: cooperative, interactive, following commands ICD10 Worksheet Patient Problems: Problems Problem Status Onset Severe sepsis Acute Chronic Disease Mgmt/TCM Acute CHF (congestive heart failure) Acute Hypoxia Acute Pneumonia Acute Transitonal Care Acute
--- NOTE | 2017-03-07 19:55 | HOSPPROG ---
Hospitalist Progress Note Assessment/Plan: Ramírez is a 82-year-old male with a history of a TAVR, CHF, COPD presented with sudden onset of fever and cough. He was taking care of his grandson who has strep. * Community-acquired pneumonia on ceftriaxone and azithromycin chest x-ray reveals a right-sided pneumonia (middle lobe) will get a swallow evaluation * history of atrial fibrillation on oral anticoagulation and rate controlled with beta-ivis INR is therapeutic *acute on chronic diastolic heart failure patient is feeling much better after getting iv lasix on 03/06 reviewed care with cardiology/ another iv dose given * thrombocytopenia will follow * valvular heart disease: history of TAVR a few years ago *hypoxemic respiratory failure/chronic improving *Plan: will ask ST to evaluate, diurese, if cont improvement; will plan on discharge in the morning Subjective: Mani is feeling better today. Less short of breath. Objective: Vital Signs Temp Pulse Resp BP Pulse Ox 37.5 C 77 16 97/53 L 95 03/07/17 15:53 03/07/17 16:51 03/07/17 15:53 03/07/17 15:53 03/07/17 16:51 Microbiology 03/06/17 13:00 Respiratory Panel (PCR) - Final Nasal, Sinus - Swab No Organism Detected Laboratory Results 03/06/17 04:14 03/07/17 04:19 03/06/17 03/07/17 03/08/17 05:59 05:59 05:59 Intake Total 200 900 Output Total 150 375 Balance 50 900 -375 PT 28.2 SEC (12.0-15.0) H 03/07/17 04:19 INR 2.61 (0.83-1.16) H 03/07/17 04:19 - Physical Exam Constitutional: no apparent distress, appears nourished, not in pain Eyes: PERRL Ears, Nose, Mouth, Throat: hearing normal Cardiovascular: regular rate and rhythym Respiratory: no respiratory distress, reduced air movement (bases/clear today) Gastrointestinal: normoactive bowel sounds Skin: warm Musculoskeletal: full muscle strength Neurologic: AAOx3 Psychiatric: interacting appropriately ICD10 Worksheet Patient Problems: Problems Problem Status Onset Pneumonia Acute Severe sepsis Acute CHF (congestive heart failure) Acute Chronic Disease Mgmt/TCM Acute Hypoxia Acute Transitonal Care Acute
[2017-03-07] MEDS: AZITHROMYCIN IV 500 MG in D5W 250 ML IV SCH (20:17)
[2017-03-07] MEDS: CETIRIZINE 10 MG TAB PO SCH (20:26)
[2017-03-07] MEDS: PRIMIDONE 50 MG TAB PO SCH (20:27)
[2017-03-07] MEDS: PRAVASTATIN SODIUM 20 MG TAB PO SCH (20:27)
[2017-03-07] MEDS: DOXAZOSIN MESYLATE 4 MG TAB PO SCH (20:27)
[2017-03-08 05:19] LABS: INR 2.23 (0.83-1.16); PROTIME(PATIENT) 24.9 SEC (12.0-15.0)
[2017-03-08 05:33] LABS: ANION GAP 10 mEq/L (8-16); CALCIUM 8.5 mg/dL (8.5-10.4); CARBON DIOXIDE 26 mEq/l (22-31); CHLORIDE 100 mEq/L (97-110); CREATININE 0.9 mg/dL (0.7-1.3); GLOMERULAR FILTRATION RATE > 60; GLUCOSE 104 mg/dL (70-100); POTASSIUM 3.7 mEq/L (3.5-5.2); SODIUM 136 mEq/L (134-144)
[2017-03-08] MEDS: IPRATROPIUM/ALBUTEROL 3 ML DEYVIAL IH SCH ×2 (05:52→11:09)
--- NOTE | 2017-03-08 08:29 | HOSPPROG ---
Hospitalist Progress Note Assessment/Plan: Ramírez is a 82-year-old male with a history of a TAVR, CHF, COPD presented with sudden onset of fever and cough. He was taking care of his grandson who has strep. * Community-acquired pneumonia on ceftriaxone and azithromycin chest x-ray reveals a right-sided pneumonia (middle lobe) swallow evaluation shows no overt aspiration * history of atrial fibrillation on oral anticoagulation and rate controlled with beta-ivis INR is therapeutic *acute on chronic diastolic heart failure patient is feeling much better after getting iv lasix on 03/06 and 03/07 he may need a higher po dose * thrombocytopenia will follow * valvular heart disease: history of TAVR a few years ago *hypoxemic respiratory failure/chronic improving/ now on 1-2 liters will do a room air challenge *Plan: Mani is not feeling as well this morning/ will re-evaluate this afternoon to see how he is doing. Subjective: Mani is not feeling as well as he was yesterday/ feeling a bit short of breath. Objective: Vital Signs Temp Pulse Resp BP Pulse Ox 36.3 C 74 16 121/72 H 96 03/08/17 07:14 03/08/17 07:14 03/08/17 07:14 03/08/17 07:14 03/08/17 07:14 Laboratory Results 03/06/17 04:14 03/08/17 04:22 03/07/17 03/08/17 03/09/17 05:59 05:59 05:59 Intake Total 900 Output Total 835 Balance 900 -835 PT 24.9 SEC (12.0-15.0) H 03/08/17 04:22 INR 2.23 (0.83-1.16) H 03/08/17 04:22 - Physical Exam Constitutional: not in pain Eyes: PERRL Ears, Nose, Mouth, Throat: hearing normal Cardiovascular: regular rate and rhythym, systolic murmur Respiratory: no respiratory distress, reduced air movement Gastrointestinal: normoactive bowel sounds Skin: warm Musculoskeletal: no muscle tenderness Neurologic: AAOx3 Psychiatric: interacting appropriately, not anxious ICD10 Worksheet Patient Problems: Problems Problem Status Onset Pneumonia Acute Severe sepsis Acute CHF (congestive heart failure) Acute Chronic Disease Mgmt/TCM Acute Hypoxia Acute Transitonal Care Acute
[2017-03-08] MEDS: ASCORBIC ACID 500 MG TAB PO SCH (09:57)
[2017-03-08] MEDS: METOPROLOL SUCCINATE XR 50 MG TAB PO SCH (09:58)
[2017-03-08] MEDS: GLUCOSAMINE/CHONDROITIN CAP PO SCH (09:58)
[2017-03-08] MEDS: FUROSEMIDE 20 MG TAB PO SCH (09:58)
[2017-03-08] MEDS: ASPIRIN 81 MG CHEWABLE TAB PO SCH (09:59)
[2017-03-08] MEDS: HYDROCHLOROTHIAZIDE 25 MG TAB PO SCH (09:59)
[2017-03-08] MEDS: VALSARTAN 80 MG TAB PO SCH (10:00)
[2017-03-08] MEDS: WARFARIN SODIUM 2.5 MG TAB PO SCH (10:06)
[2017-03-08] MEDS: TIOTROPIUM INHALER 18 MCG/DOSE 5 DOSE/MDI IH SCH (11:09)
[2017-03-08] MEDS: Fluticasone/Salmeterol [Advair Hfa 115-21 Mcg Inhaler] IH SCH (11:10)
[2017-03-08 11:37] VITALS: BP 126/74; PULSE 71; RESP 18; TEMP 97.9; O2SAT 93
--- NOTE | 2017-03-08 13:10 | PDCARPN ---
Cardiology Progress Note Chief Complaint: Patient reports he wants to go home. Assessment/Plan: Assessment: 82-year-old male with history aortic valve disease, status post TAVR, CHF, COPD , chronic atrial fibrillation, status post ablation, ppm implantation, obstructive sleep apnea CPAP. Recently diagnosed with right-sided pneumonia. EKG on admission showing atrial fibrillation as underlying rhythm ventricular paced beats. Found yesterday to have elevated BNP 2020 and increased shortness of breath. IV Lasix given last evening. Reporting improvement in symptoms. Has had no chest pain or pressure. Echocardiogram done 03/07/2017 showing LV hyperdynamic with EF of 70 75%, septal motion consistent with conduction abnormality or pacemaker. LA is severely dilated, RA is moderately to severely dilated, moderate to severe mitral annular calcification, mild MS, mild-to- moderate MR, moderate TR, RVSP P 50 7 mm Hg, previous TAVR moderate valvular aortic stenosis, peak gradient 37 mm of mercury, mean gradient 23 mm Hg, trace TR. Patient maintaining SpO2 greater than 90% on room air. Blood pressures been stable. Patient denies of any chest pressure or pain. Mild improvement peripheral edema. Patient reports no significant SOB. Plan: 1. Acute/Chronic diastolic heart failure: Improvement with IV diuresis of Lasix. Resumed home dosage of oral Lasix. Would be hesitant to increased diuretic therapy further at this time due to mild aortic stenosis and mitral stenosis. Would have him re-evaluated by his primary sample selector (outside our practice) within a week after discharge. Encourage daily weights, his sample selector should be notified if he gains more than 2 lb in a day or 5 lb in a week. 2. Valvular heart disease: s/p TAVR, mild gradient across aortic valve. Moderate MR. Diuresis as above. Continue on home cardiac medications. 3. Chronic atrial fibrillation: Status post AV day ablation, ventricular paced beats. Pulse is regular. INR is within normal limits 4. Hypoxia: Patient maintaining SpO2 greater than 90% on room air. 5. Community-acquired pneumonia: On antibiotic therapy per hospital services. 03/08/17 13:10 Subjective: Patient denies of any chest pressure or pain. Reports no orthopnea, lightheadedness, palpitations, near-syncope, or syncopal events. Reviewed/Discussed With: hospitalist (Nichelle Beckett NP), other (Dr Gongora) Objective: Vital Signs (8 Hrs) Temp Pulse Resp BP Pulse Ox 03/08/17 11:36 36.6 C 71 18 126/74 H 93 03/08/17 11:10 70 15 92 03/08/17 07:14 36.3 C 74 16 121/72 H 96 Intake/Output (24 Hrs) 03/07/17 03/08/17 03/09/17 05:59 05:59 05:59 Intake Total 900 240 Output Total 835 Balance 900 -835 240 Intake: Oral (ml) 240 IV Intake (ml) 900 Output: Urine (ml) 835 Urinal 835 Other: Weight 83 kg Intake Quantity Yes Yes Sufficient Result Diagrams: 03/06/17 04:14 03/08/17 04:22 - Physical Exam Constitutional: WDWN, no apparent distress Ears, Nose, Mouth, Throat: moist mucous membranes Cardiovascular: regular rate and rhythm, no rubs, systolic murmur (3-4/6 upper chest radiating into carotids.), jugular vein distention (4 cm at 45 degree angle.), pulses symmetric bilat, carotid bruit Peripheral Pulses: 1+: dorsalis-pedis (R), dorsalis-pedis (L), 2+: carotid (R), carotid (L) Respiratory: other (Lungs are clear, but diminished in bases bilateral, no rhonchi, rales, or wheezing noted. No accessary muscle use, no intercostal muscle retraction noted.) Gastrointestinal: normoactive bowel sounds Skin: warm, No no edema (Trace pedal edema bilateral lower extremities) Neurologic: AAOx3 Psychiatric: cooperative, interactive, following commands ICD10 Worksheet Patient Problems: Problems Problem Status Onset Pneumonia Acute Severe sepsis Acute CHF (congestive heart failure) Acute Chronic Disease Mgmt/TCM Acute Hypoxia Acute Transitonal Care Acute
--- NOTE | 2017-03-08 14:31 | GDS ---
[f rep st] DISCHARGE SUMMARY DISCHARGE DIAGNOSES: 1. Community-acquired pneumonia, treated with ceftriaxone and azithromycin. 2. History of atrial fibrillation. 3. Acute on chronic diastolic heart failure. 4. Thrombocytopenia. 5. Valvular heart disease. 6. Hypoxemic respiratory failure. CONSULTATIONS: Eun Nguyen, nurse practitioner with Cardiology. Briefly, the patient is an 82-year-old gentleman who has a history of a TAVR, preserved EF, congestive heart failure, COPD, who presented with sudden onset of fever and cough. He had a chest x-ray which showed a right middle lobe pneumonia. It was also noted that he had cardiomegaly without heart failure. He was treated with ceftriaxone and azithromycin, but still continued to feel poorly. He was given 2 doses of IV Lasix during his stay with much improvement. He will be discharged home on antibiotics. Recommendation for him to get a repeat chest x-ray in 6 weeks to make sure resolution of his pneumonia. HOSPITAL COURSE PER PROBLEM: 1. Community-acquired pneumonia. Chest x-ray revealed a right-sided pneumonia. A swallow evaluation was done by Speech Therapy. He has no overt aspiration. He is on room air, feeling markedly better. He will be discharged on 4 more days of antibiotics. 2. History of atrial fibrillation. He is on oral anticoagulation. INR is therapeutic. This is rate controlled with beta ivis. 3. Acute on chronic diastolic heart failure. He feels markedly better after getting the IV Lasix on the and 07 of March. He may need a higher oral dose. Because he had a TAVR, I would like him to follow up with his learning technologies specialist in approximately a week and discuss his diuretic therapy. 4. Thrombocytopenia, stable. 5. Valvular heart disease. He had a history of a TAVR a few years ago. 6. Hypoxemic respiratory failure, now on room air. PENDING LABS AND TESTS: None. Of note, blood cultures show no growth. Respiratory panel was performed, which showed no organism detected. CONDITION ON DISCHARGE: Stable. Blood pressure is 126/74. Heart rate is 71. Respiratory rate is 18. O2 sats on room air are 92%. Temperature is 36.6 Celsius. DISCHARGE MEDICATIONS: Please see the EMR. DISCHARGE INSTRUCTIONS: 1. Follow up with Cardiology. 2. If he puts on 2 pounds in a day or 5 pounds in a week, to call his learning technologies specialist. He may need a higher dose of Lasix. 3. To get his INR checked on Sunday. 4. Repeat chest x-ray in 6 weeks to make sure resolution of his pneumonia. Greater than 30 minutes discharging and coordinating care. /[id number]/MODL MTDD
--- NOTE | 2017-03-08 15:09 | PDIAF ---
- Diagnosis Diagnosis: CAP, acute diastolic on chronic heart failure Code Status: Full Code - Medication Management Discharge Medications: Medications to Continue on Transfer Ascorbic Acid [Vitamin C 500 mg (*)] 500 mg PO BID 07/07/12 [Last Taken 03/05/17 ] Doxazosin Mesylate [Cardura 4 MG (*)] 4 mg PO HS 07/07/12 [Last Taken 11/08/16] Glucosam/Chondr/Collagn/Hyalur [Glucosamine & Chondroitin Cap] 1 each PO DAILY 07/07/12 [Last Taken 07/07/12] Loratadine [Claritin 10 mg] 10 mg PO HS 07/07/12 [Last Taken 11/08/16] Primidone [Mysoline] 125 mg PO HS 07/07/12 [Last Taken 11/08/16] Tiotropium Inhaler [Spiriva Inhaler (RX)] 1 inh IH DAILY 07/07/12 [Last Taken ] Valsartan [Diovan (*)] 80 mg PO DAILY 07/07/12 [Last Taken 03/05/17] Aspirin [Aspirin 81mg (*)] 81 mg PO DAILY 11/09/16 [Last Taken 03/05/17] Fluticasone/Salmeterol [Advair Hfa 115-21 Mcg Inhaler] 2 puffs IH DAILY [Last Taken 11/08/16] Furosemide [Lasix 20 MG (*)] 20 mg PO DAILY 11/09/16 [Last Taken 11/08/16] Herbals/Supplements -Info Only 1 ea PO DAILY 11/09/16 [Last Taken 11/08/16] SIMVASTATIN 10 mg PO HS 11/09/16 [Last Taken 11/08/16] Warfarin Sodium [Coumadin 2.5MG (*)] 3.75 mg PO DAILY 11/09/16 [Last Taken 03/05] Metoprolol Succinate Xr [Toprol Xl 50 mg (*)] 50 mg PO DAILY #30 tab 11/15/16 [ Last Taken 03/05/17] Hydrochlorothiazide [HCTZ (*)] 25 mg PO DAILY 03/05/17 [Last Taken 03/05/17] Cefdinir [Omnicef (*)] 300 mg PO BID #8 cap 03/08/17 [Last Taken Unknown] Discharge Medications: Refer to the Discharge Home Medication list for PRN reason. - Orders Services needed: Home Care, Registered Nurse Home Care Face to Face: I certify that this patient was under my care and that I had the required [id number] encounter meeting the encounter requirements on the discharge day. My findings support the fact that the patient is homebound as defined in CMS Chapter 7 Medicare Benefits Manual 30.1.1, The condition of the patient is such that there exists a normal inability to leave home and consequently, leaving home would require a considerable and taxing effort. Diet Texture: Regular Texture Diet, Thin Liquids Weigh Patient: daily Additional: call cardiology is patient's weight increases by 2 pounds in one day or 5 pounds in a week. Will need INR monitored closely/on abx. - Labs/Radiology PT/INR Date: 03/12/17 - Follow Up Care Current Providers and Referrals: PRUDENCE DEL CID [Primary Care Provider] - As per Instructions
== END 2017-03-08 15:18 | disposition home health service (06) | DRG 193 ==
LOC: OBSVTOIN 21:22 → F3E 22:29
PROVIDERS: ADMIT Family Medicine; ATTEND Family Medicine
DX: J18.9 Pneumonia, unspecified organism (principal); I11.0 Hypertensive heart disease with heart failure; I50.33 Acute on chronic diastolic (congestive) heart failure; J96.11 Chronic respiratory failure with hypoxia; D69.6 Thrombocytopenia, unspecified; G47.33 Obstructive sleep apnea (adult) (pediatric); I48.2 Chronic atrial fibrillation; R25.1 Tremor, unspecified; Z95.2 Presence of prosthetic heart valve; Z95.0 Presence of cardiac pacemaker; Z79.01 Long term (current) use of anticoagulants; Z87.891 Personal history of nicotine dependence; Z99.81 Dependence on supplemental oxygen
CPT/HCPCS: 92610-GN; 96365; 97116-GP; 97161-GP; G8978-GP-CI; G8979-GP-CH; G8996-GN-CH; G8997-GN-CH; G8998-GN-CH; J0456; J0696; J1940